=== PATIENT | male | born 1955 | race Caucasian/White ===

== ENCOUNTER 2016-08-15 02:25 | Observation (INO) | payer MEDICARE ==
--- NOTE | 2016-08-15 03:30 | ER Document Report ---
ED General - General Chief Complaint: Chest Pain Stated Complaint: CHEST PAIN Time Seen by Provider: 08/15/16 03:19 Notes: Patient is a 61-year-old male presents with complaint of a pressure-like sensation that radiates up into the left side of his face. He says he feels like there is pressure behind his left eye. Denies blurred vision. He also has a sharp shooting pain that goes into his left caodaism. He also feels palpitations. He says he has no slight discomfort in his chest. No difficulty breathing. No fevers. No history of coronary disease. He does have a history of diabetes and high blood pressure and COPD. He is followed by Dr. Gama. 10 trauma to his head. TRAVEL OUTSIDE OF THE [place] IN LAST 30 DAYS: No - Related Data Allergies/Adverse Reactions: No Known Allergies Allergy (Verified 09/14/13 17:28) Past Medical History - Social History Smoking Status: Former Smoker Frequency of alcohol use: None Drug Abuse: None Family History: CAD, Hypertension - Past Medical History Cardiac Medical History: Reports: Hx Hypertension Pulmonary Medical History: Reports: Hx COPD Endocrine Medical History: Reports: Hx Diabetes Mellitus Type 2 Renal/ Medical History: Denies: Hx Peritoneal Dialysis Traumatic Medical History: Reports: Hx Fractures Past Surgical History: Reports: Hx Orthopedic Surgery - Immunizations Immunizations up to date: Yes Hx Diphtheria, Pertussis, Tetanus Vaccination: Yes Review of Systems - Review of Systems Notes: My Normal Review Basic REVIEW OF SYSTEMS: CONSTITUTIONAL : Denies fever, chills, or sweats. Denies recent illness. EENT: Denies eye, ear, throat, or mouth pain or symptoms. Denies nasal or sinus congestion. CARDIOVASCULAR: Palpitations in chest. RESPIRATORY: Denies cough, cold, or chest congestion. Denies shortness of breath, difficulty breathing, or wheezing. GASTROINTESTINAL: Denies abdominal pain. Denies nausea, vomiting, or diarrhea. Denies constipation. Last BM: MUSCULOSKELETAL: Denies neck or back pain or joint pain or swelling. SKIN: Denies rash or skin lesions. NEUROLOGICAL: Denies altered mental status or loss of consciousness. Has a headache. Denies weakness or paralysis or loss of use of either side. Denies problems with gait or speech. Denies sensory or motor loss. ALL OTHER SYSTEMS REVIEWED AND NEGATIVE. Physical Exam - Vital signs Vitals: Resp BP Pulse Ox 12 185/75 H 94 08/15/16 03:33 08/15/16 03:33 08/15/16 03:33 - Notes Notes: General Appearance: Well nourished, alert, cooperative, no acute distress, moderate obvious discomfort. Vitals: reviewed, See vital signs table. Head: no swelling or tenderness to the head. Some tenderness to palpation over the left temporal area. Eyes: PERRL, EOMI, Conjuctiva clear Mouth: No decreasd moisture Neck: Supple, no neck tenderness, No thyromegaly Lungs: No wheezing, No rales, No rhonci, No accessory muscle use, good air exchange bilaterally. Heart: Normal rate, Regular rythm, No murmur, no rub Abdomen: Normal BS, soft, No rigidity, No abdominal tenderness, No guarding, no rebound, no abdominal masses, no organomegaly Extremities: strength 5/5 in all extremities, good pulses in all extremities, no swelling or tenderness in the extremities, no edema. Skin: warm, dry, appropriate color, no rash Neuro: speech clear, oriented x 3, normal affect, responds appropriately to questions. Cranial nerves II through XII are intact. Distal sensation intact. Patient was all extremities without difficulty. Good strength is equal bilateral with exception of the right hand has a chronic injury causing him not to be able to fully squeeze with the right hand. He says this is unchanged. Course - Vital Signs Vital signs: Temp Pulse Resp BP Pulse Ox 12 130/63 H 96 08/15/16 04:20 08/15/16 04:20 08/15/16 04:20 - Laboratory Result Diagrams: 08/15/16 03:35 08/15/16 03:35 Laboratory results interpreted by me: 08/15/16 08/15/16 03:35 03:35 Plt Count 117 L Glucose 148 H - EKG Interpretation by Me Additional EKG results interpreted by me: 08/15/16 03:31 EKG is reviewed and interpreted by me. EKG shows sinus rhythm with a rate of [address] segment elevation or depression. No ischemic T-wave inversions. RI interval is prolonged. QRS duration is borderline. QTc interval is within normal range. Old EKG for comparison is from August 24, 2014 - Transfer of Care Notes: 08/15/16 06:32 The patient has been nares had recurrent bradycardia. This occurs is when he feels the abnormal sensation in his chest. It is really unclear if the bradycardia is causing the chest pain or vice versa. I suspect the bradycardia may be occurring due to the patient's having increased vagal response from pain. He has pain mostly over the left side of his face. On further history he now informs me that he did have teeth pulled from this area a year ago. Since then he has had some recurrent pain in left side of his face he has been referred to an ENT physician. They told him that he may have nerve damage in his face. This may be the cause of his facial pain. He has no significant swelling to the face itself. No redness. My concern is that the patient has a first-degree AV eligio block and he continues to have repeat episodes of bradycardia with some associated discomfort in his chest. I did speak with Dr. Gama, who agrees to admit the patient. Dictation of this chart was performed using voice recognition software; therefore, there may be some unintended grammatical errors. Discharge - Discharge Clinical Impression: Bradycardia, Facial pain Chest pain Qualifiers: Chest pain type: unspecified Qualified Code(s): R07.9 - Chest pain, unspecified Admitting Provider: [facility] Admitted: Telemetry Referrals: VANESSA CHAMBERS MD [Primary Care Provider] - Follow up as needed
[2016-08-15 03:47] LABS: HEMATOCRIT 46.2 % (37.9-51.0); HEMOGLOBIN 16.2 g/dL (13.5-17.0); HGB HCT DIFFERENCE 2.4; MEAN CORPUSCULAR HEMOGLOBIN 30.4 pg (27.0-33.4); MEAN CORPUSCULAR HGB CONC 35.1 g/dL (32.0-36.0); MEAN CORPUSCULAR VOLUME 87 fl (80-97); RED BLOOD COUNT 5.33 10^6/uL (4.35-5.55); RED CELL DISTRIBUTION WIDTH 12.8 % (11.5-14.0); WHITE BLOOD COUNT 7.3 10^3/uL (4.0-10.5)
[2016-08-15 04:01] LABS: ALANINE AMINOTRANSFERASE 52 U/L (21-72); ALBUMIN 4.2 g/dL (3.5-5.0); ALKALINE PHOSPHATASE 107 U/L (38-126); ANION GAP 14 (5-19); ASPARTATE AMINO TRANSFERASE 30 U/L (17-59); BILIRUBIN,DIRECT 0.4 mg/dL (0.0-0.4); BILIRUBIN,TOTAL 0.5 mg/dL (0.2-1.3); BLOOD UREA NITROGEN 14 mg/dL (7-20); CALCIUM 9.6 mg/dL (8.4-10.2); CARBON DIOXIDE 24 mmol/L (22-30); CHLORIDE 103 mmol/L (98-107); CREATINE KINASE 161 U/L (55-170); CREATININE RESULT 0.81 mg/dL (0.52-1.25); GLUCOSE 148 mg/dL (75-110); POTASSIUM 3.8 mmol/L (3.6-5.0); SODIUM 141.3 mmol/L (137-145); TOTAL PROTEIN 7.5 g/dL (6.3-8.2)
[2016-08-15 04:13] LABS: CREATINE KINASE MB 1.74 ng/mL (<4.55)
[2016-08-15] MEDS ORDERED: DIPHENHYDRAMINE HCL 50 MG/ML VIAL IV ONE (04:13)
[2016-08-15] MEDS ORDERED: METOCLOPRAMIDE HCL INJ/PF 10 MG/2 ML SDV IV ONE (04:13)
[2016-08-15 04:18] LABS: TROPONIN I < 0.012 ng/mL
--- NOTE | 2016-08-15 04:18 | RADIOLOGY REPORT (SQ) ---
EXAM DESCRIPTION: CHEST SINGLE VIEW COMPLETED DATE/TIME: 08/15/2016 4:04 am REASON FOR STUDY: palpitations COMPARISON: 01/11/2015. EXAM PARAMETERS: NUMBER OF VIEWS: One view. TECHNIQUE: Single frontal radiographic view of the chest acquired. RADIATION DOSE: NA LIMITATIONS: None. FINDINGS: LUNGS AND PLEURA: Moderate lung volume. Mild interstitial markings. Stable since 2014. MEDIASTINUM AND HILAR STRUCTURES: No masses. Contour normal. HEART AND VASCULAR STRUCTURES: Heart normal in size. Normal vasculature. BONES: No acute findings. HARDWARE: None in the chest. OTHER: No other significant finding. IMPRESSION: No acute cardiopulmonary findings. TECHNICAL DOCUMENTATION: JOB ID: [id number]
[2016-08-15 04:25] LABS: ERYTHROCYTE SEDIMENTATION RATE 10 mm/hr (0-20)
[2016-08-15] MEDS ORDERED: MORPHINE SULFATE 10 MG/ML INJ IV ONE (04:42)
[2016-08-15] MEDS ORDERED: FENTANYL CITRATE INJ/PF 100 MCG/2 ML AMPUL IV ONE (06:14)
--- NOTE | 2016-08-15 08:41 | EKG REPORT ---
SEVERITY:- ABNORMAL ECG - SINUS RHYTHM FIRST DEGREE AV BLOCK NONSPECIFIC IVCD WITH LAD : Confirmed by: Jaspal Garcia 15-Aug-2016 08:39:43
[2016-08-15] MEDS ORDERED: PREGABALIN 75 MG CAPSULE PO SCH (10:00)
[2016-08-15] MEDS ORDERED: DEXTROSE 50%-WATER SYRINGE 12.5 GM/25 ML DOSE IV PRN (12:17)
[2016-08-15] MEDS ORDERED: DEXTROSE 40% GEL 15 GM TUBE PO PRN (12:17)
[2016-08-15] MEDS ORDERED: GLUCAGON,HUMAN RECOMB 1 MG INJ IM PRN (12:17)
[2016-08-15] MEDS ORDERED: DEXTROSE 40% GEL 15 GM TUBE X 2 PO PRN (12:17)
[2016-08-15] MEDS ORDERED: INSULIN LISPRO 100 UNIT/ML 3 ML VIAL SUBCUT PRN (12:17)
[2016-08-15] MEDS ORDERED: DEXTROSE 50%-WATER SYRINGE 25 GM/50 ML DOSE IV PRN (12:17)
[2016-08-15 12:34] LABS: CREATINE KINASE MB 1.42 ng/mL (<4.55); TROPONIN I 0.013 ng/mL
[2016-08-15] MEDS: GABAPENTIN 300 MG CAPSULE PO SCH ×2 (15:48→21:26)
[2016-08-15] MEDS ORDERED: AMLODIPINE BESYLATE 10 MG TABLET PO ONE (16:00)
[2016-08-15] MEDS ORDERED: VALSARTAN 160 MG TABLET PO ONE (16:00)
[2016-08-15] MEDS ORDERED: POTASSIUM CHLORIDE 10 MEQ TABLET.SA PO ONE (16:00)
[2016-08-15] MEDS ORDERED: HYDROCHLOROTHIAZIDE 25 MG TABLET PO ONE (16:00)
--- NOTE | 2016-08-15 17:59 | PDOC H&P ---
History of Present Illness Admission Date/PCP: 08/15/16 09:36 VANESSA CHAMBERS MD History of Present Illness: CARLOS STALLINGS is a 61 year old male he has a history of diabetes mellitus type 2 , he came to the emergency room last night for evaluation of chest pressure the last few days, the sensation is not provoked by activity and relieved by rest. He also complained of facial pain mostly on the left face, the symptoms is consistent with neuralgia Past Medical History Cardiac Medical History: Reports: Hypertension Pulmonary Medical History: Reports: Chronic Obstructive Pulmonary Disease (COPD) Endocrine Medical History: Reports: Diabetes Mellitus Type 2 Past Surgical History Past Surgical History: Reports: Orthopedic Surgery Social History Smoking Status: Never Smoker Frequency of Alcohol Use: Occasional Hx Recreational Drug Use: No Hx Prescription Drug Abuse: No - Advance Directive Resuscitation Status: Full Code Family History Family History: CAD, Hypertension Parental Family History Reviewed: Yes Children Family History Reviewed: Yes Sibling(s) Family History Reviewed.: Yes Medication/Allergy Home Medications: Amlodipine/Valsartan/Hcthiazid [Nctgy-Rvazb-Xblq 10-320-25 mg] 1 tab PO DAILY Gabapentin [Neurontin] 600 mg PO Q8 08/15/16 Omeprazole 40 mg PO DAILY 08/15/16 Potassium Chloride [Klor-Con 10 Meq Tablet.sa] 10 meq PO DAILY 08/15/16 Ranitidine HCl [Zantac 150 mg Tablet] 150 mg PO BID 08/15/16 Allergies/Adverse Reactions: No Known Allergies Allergy (Verified 09/14/13 17:28) Review of Systems Constitutional: PRESENT: other - Facial pain Ears: ABSENT: hearing changes Cardiovascular: PRESENT: chest pain Respiratory: ABSENT: cough, hemoptysis Gastrointestinal: ABSENT: as per HPI, abdominal pain, bloating, coffee ground emesis, constipation, diarrhea, dysphagia, heartburn, hematemesis, hematochezia , melena, nausea, vomiting, other Genitourinary: ABSENT: dysuria, hematuria Musculoskeletal: ABSENT: joint swelling Integumentary: ABSENT: rash, wounds Neurological: PRESENT: paresthesias, other - facial pain consistent with trigeminal neuralgia Psychiatric: ABSENT: anxiety, depression, homidical ideation, suicidal ideation Endocrine: ABSENT: cold intolerance, heat intolerance, menstrual abnormalities, polydipsia, polyuria Hematologic/Lymphatic: ABSENT: easy bleeding, easy bruising, lymphadenopathy Physical Exam Vital Signs: Temp Pulse Resp BP Pulse Ox 97.6 F 44 L 17 179/65 H 98 08/15/16 16:00 08/15/16 16:00 08/15/16 16:00 08/15/16 16:00 08/15/16 16:00 Intake & Output 08/14/16 08/15/16 08/16/16 06:59 06:59 06:59 Intake Total 180 Output Total 400 Balance -220 General appearance: PRESENT: no acute distress, well-developed, well-nourished Head exam: PRESENT: atraumatic, normocephalic Eye exam: PRESENT: conjunctiva pink, EOMI, PERRLA. ABSENT: scleral icterus Ear exam: PRESENT: normal external ear exam Mouth exam: PRESENT: moist, tongue midline Neck exam: PRESENT: full ROM Respiratory exam: PRESENT: clear to auscultation amando Cardiovascular exam: PRESENT: RRR, +S1, +S2 Pulses: PRESENT: normal dorsalis pedis pul, +2 pedal pulses bilateral Vascular exam: PRESENT: normal capillary refill GI/Abdominal exam: PRESENT: normal bowel sounds, soft Rectal exam: PRESENT: deferred Neurological exam: PRESENT: alert, awake, oriented to person, oriented to place , oriented to time, oriented to situation, CN II-XII grossly intact Psychiatric exam: PRESENT: appropriate affect, normal mood Skin exam: PRESENT: dry, intact, warm Results Laboratory Results: 08/15/16 08/15/16 11:47 11:47 Creatine Kinase 124 CK-MB (CK-2) 1.42 Troponin I 0.013 Impressions: Chest X-Ray 08/15/16 03:26 IMPRESSION: No acute cardiopulmonary findings. Assessment & Plan - Diagnosis (1) Chest pain Qualifiers: Chest pain type: unspecified Qualified Code(s): R07.9 - Chest pain, unspecified Is this a current diagnosis for this admission?: YesPlan: He has multiple risk factor for ischemic heart disease, he presented with chest pressure, cardiac enzymes were drawn, cardiolite stress test will be ordered (2) Trigeminal neuralgia of left side of face Is this a current diagnosis for this admission?: YesPlan: She has trigeminal neuralgia affecting the left side of the face, Lyrica, MRI brain ordered to rule out intracranial lesion because of pain in the back of the eyeball
[2016-08-15] MEDS ORDERED: (PENDING PHARMACY ID) (Ranitidine Hcl [Zantac 150 Mg Tablet] 150 MG) PO SCH (18:00)
[2016-08-15 19:02] LABS: CREATINE KINASE MB 1.46 ng/mL (<4.55)
[2016-08-15 19:08] LABS: TROPONIN I < 0.012 ng/mL
--- NOTE | 2016-08-15 20:10 | RADIOLOGY REPORT (SQ) ---
EXAM DESCRIPTION: MRI HEAD WITHOUT COMPLETED DATE/TIME: 08/15/2016 7:56 pm REASON FOR STUDY: headache R07.9 CHEST PAIN, UNSPECIFIED COMPARISON: 08/24/2014. TECHNIQUE: Multiplanar imaging includes non-contrasted T1, T2, FLAIR, and diffusion with ADC map seq uences. Images stored on PACS. LIMITATIONS: None. FINDINGS: ANATOMY: No anomalies. Normal vascular flow voids. Pituitary fossa normal. CSF SPACES: Normal in size and contour. No hemorrhage. CEREBRUM: Sulci and gyri normal in size and contour. Normal white matter signal on FLAIR imaging. No evidence of hemorrhage, mass, or extraaxial fluid collection. POSTERIOR FOSSA: No signal alteration. No hemorrhage. No edema, masses or mass effect. Internal lila tory canals, cerebello-pontine angles, mastoids normal. DIFFUSION IMAGING: Negative for acute or sub-acute infarction. ORBITS: No masses. Globes normal. PARANASAL SINUSES: Mucous membrane thickening in the frontal and ethmoid sinuses. OTHER: No other significant finding. IMPRESSION: NORMAL MRI OF THE BRAIN WITHOUT INTRAVENOUS GADOLINIUM CONTRAST. SINUS DISEASE. TECHNICAL DOCUMENTATION: JOB ID: [id number] All Rights Reserved
[2016-08-15] MEDS: FAMOTIDINE 20 MG TABLET PO SCH (21:25)
[2016-08-16 02:50] LABS: CREATINE KINASE MB 1.17 ng/mL (<4.55)
[2016-08-16 02:54] LABS: TROPONIN I < 0.012 ng/mL
[2016-08-16] MEDS: GABAPENTIN 300 MG CAPSULE PO SCH ×2 (05:45→13:55)
[2016-08-16] MEDS ORDERED: LANSOPRAZOLE 30 MG TAB.RAP.DR PO SCH (06:00)
--- NOTE | 2016-08-16 07:51 | EKG REPORT ---
SEVERITY:- ABNORMAL ECG - SINUS BRADYCARDIA FIRST DEGREE AV BLOCK NONSPECIFIC INTRAVENTRICULAR CONDUCTION DELAY : Confirmed by: Jaspal Garcia 16-Aug-2016 07:50:50
[2016-08-16] MEDS: FAMOTIDINE 20 MG TABLET PO SCH (09:19)
[2016-08-16] MEDS ORDERED: POTASSIUM CHLORIDE 10 MEQ TABLET.SA PO SCH (10:00)
[2016-08-16] MEDS ORDERED: (PENDING PHARMACY ID) (Amlodipine/Valsartan/Hcthiazid [Amlod-Valsa-Hctz 10-320-25 Mg] 1 TA PO SCH (10:00)
[2016-08-16] MEDS ORDERED: VALSARTAN 160 MG TABLET PO SCH (10:00)
[2016-08-16] MEDS ORDERED: HYDROCHLOROTHIAZIDE 25 MG TABLET PO SCH (10:00)
[2016-08-16] MEDS ORDERED: AMLODIPINE BESYLATE 10 MG TABLET PO SCH (10:00)
[2016-08-16] MEDS ORDERED: REGADENOSON INJ 0.4 MG/5 ML DISP.SYRIN IV ONE (10:40)
--- NOTE | 2016-08-16 15:24 | XCELERA REPORT ---
[address] [address] Transthoracic Echocardiogram Report Name: CARLOS STALLINGS Age: 61 yrs Gender: Male : 1955 Patient Status: Inpatient Patient Location: [id number] Study Date: 08/16/2016 01:58 PM Height: 66 in Weight: 186 lb BSA: 1.9 m2 Procedure: A two-dimensional transthoracic echocardiogram with color flow and Doppler was performed. The study was technically difficult with many images being suboptimal in quality. Study Quality: Technically suboptimal. Reason For Study: Chest Pain History: Chest pain. Ordering Physician: VANESSA CHAMBERS Performed By: Jigna Marshall Interpretation Summary The left ventricle is normal in size. There is normal left ventricular wall thickness. LV EF is 60% Left ventricular systolic function is normal. Doppler measurements suggest normal left ventricular diastolic function The left ventricular wall motion is normal. There is no thrombus. The right ventricle is not well visualized secondary to technical limitations Right atrium not well visualized secondary to technical limitations The left atrial size is normal. There is no evidence of mitral valve prolapse. There is no mitral valve stenosis. There is no mitral regurgitation noted. There is no aortic valve stenosis There is no LVOT obstruction. No aortic regurgitation is present. There is no tricuspid stenosis. There is a trace amount of tricuspid regurgitation Right ventricular systolic pressure is normal. RVSP is 32 to 26 mm of Hg , with RA mean of 5 to 10. There is no pericardial effusion. MMode/2D Measurements \T\ Calculations RVDd: 3.0 cm LVIDd: 4.5 cm FS: 33.2 % Ao root diam: 3.5 cm IVSd: 1.0 cm LVIDs: 3.0 cm EDV(Teich): 91.2 ml LVPWd: 0.99 cmESV(Teich): 34.7 ml Ao root area: 9.5 cm2 EF(Teich): 61.9 % LA dimension: 3.9 cm LVOT diam: 2.3 cm LVOT area: 4.1 cm2 Doppler Measurements \T\ Calculations MV E max amando: MV P1/2t max amando: Ao V2 max: LV V1 max P.7 cm/sec 75.3 cm/sec 144.8 cm/sec 5.2 mmHg MV A max amando: MV P1/2t: 67.6 msec Ao max PG: LV V1 max: 66.9 cm/sec MVA(P1/2t): 3.3 cm2 8.4 mmHg 114.5 cm/sec MV E/A: 1.1 MV dec slope: SALEEM(V,D): 3.3 cm2 326.2 cm/sec2 PA V2 max: TR max amando: 81.1 cm/sec 197.8 cm/sec PA max PG: TR max P.6 mmHg 2.6 mmHg Left Ventricle The left ventricle is normal in size. There is normal left ventricular wall thickness. LV EF is 60%. Left ventricular systolic function is normal. Doppler measurements suggest normal left ventricular diastolic function. The left ventricular wall motion is normal. There is no thrombus. Right Ventricle The right ventricle is not well visualized secondary to technical limitations. Atria Right atrium not well visualized secondary to technical limitations. The left atrial size is normal. Mitral Valve There is no evidence of mitral valve prolapse. There is no vegetation seen on the mitral valve. There is no mitral valve stenosis. There is no mitral regurgitation noted. Aortic Valve There is no aortic valvular vegetation. There is no aortic valve stenosis. There is no LVOT obstruction. No aortic regurgitation is present. Tricuspid Valve There is no tricuspid stenosis. There is a trace amount of tricuspid regurgitation. Right ventricular systolic pressure is normal. RVSP is 32 to 26 mm of Hg , with RA mean of 5 to 10. Pulmonic Valve There is no pulmonic valvular stenosis. There is no pulmonic valvular regurgitation. Great Vessels The aortic root is normal size. Effusions There is no pericardial effusion. : VANESSA CHAMBERS > Ila Martínez
[2016-08-16] MEDS ORDERED: ACETAMINOPHEN 325 MG TABLET PO PRN (16:45)
--- NOTE | 2016-08-16 17:45 | PDOC DISCHARGE SUMMARY ---
General - Admit/Disc Date/PCP Admission Date/Primary Care Provider: 08/15/16 09:36 VANESSA CHAMBERS MD Discharge Date: 08/16/16 - Discharge Diagnosis (1) Chest pain Is this a current diagnosis for this admission?: Yes (2) Trigeminal neuralgia of left side of face Is this a current diagnosis for this admission?: Yes (3) Diabetic polyneuropathy associated with type 2 diabetes mellitus Is this a current diagnosis for this admission?: Yes - Additional Information Resuscitation Status: Full Code Discharge Diet: Diabetic Discharge Activity: Activity As Tolerated Home Medications: Amlodipine/Valsartan/Hcthiazid [Cakqf-Bjxjq-Fofw 10-320-25 mg] 1 tab PO DAILY Omeprazole 40 mg PO DAILY 08/15/16 Potassium Chloride [Klor-Con 10 Meq Tablet.sa] 10 meq PO DAILY 08/15/16 Ranitidine HCl [Zantac 150 mg Tablet] 150 mg PO BID 08/15/16 Gabapentin [Neurontin] 900 mg PO Q8 #90 08/16/16 History of Present Illness History of Present Illness: CARLOS STALLINGS is a 61 year old male he has a history of diabetes mellitus type 2 , he came to the emergency room last night for evaluation of chest pressure the last few days, the sensation is not provoked by activity and relieved by rest. He also complained of facial pain mostly on the left face, the symptoms is consistent with neuralgia Hospital Course Hospital Course: Patient was admitted for evaluation of chest pain, cardiac enzymes were negative for acute [place] he also have left sided facial pain consistent with trigeminal neuralgia he underwent Cardiolite. Lexiscan stress test it was negative for reversible ischemia, 2D echo was done it was normal study, MRI brain was done and it was normal study. The dose of gabapentin was increased from 600 to900 mg 3 times a day Physical Exam Vital Signs: Temp Pulse Resp BP Pulse Ox 97.9 F 51 L 17 127/61 H 94 08/16/16 15:21 08/16/16 15:21 08/16/16 15:21 08/16/16 15:21 08/16/16 15:21 Intake & Output 08/15/16 08/16/16 08/17/16 06:59 06:59 06:59 Intake Total 190 840 Output Total 1300 Balance -1110 840 General appearance: PRESENT: no acute distress, well-developed, well-nourished Head exam: PRESENT: atraumatic, normocephalic Eye exam: PRESENT: conjunctiva pink, EOMI, PERRLA Ear exam: PRESENT: normal external ear exam Mouth exam: PRESENT: moist, tongue midline Neck exam: PRESENT: full ROM. ABSENT: carotid bruit, JVD, lymphadenopathy, thyromegaly Cardiovascular exam: PRESENT: RRR, +S1, +S2 Vascular exam: PRESENT: normal capillary refill GI/Abdominal exam: PRESENT: soft Rectal exam: PRESENT: deferred Neurological exam: PRESENT: alert, awake, oriented to person, oriented to place , oriented to time, oriented to situation, CN II-XII grossly intact Psychiatric exam: PRESENT: appropriate affect, normal mood Skin exam: PRESENT: dry, intact, warm Results Laboratory Results: 08/15/16 08/15/16 08/15/16 11:47 11:47 18:06 Creatine Kinase 124 121 CK-MB (CK-2) 1.42 Troponin I 0.013 08/15/16 08/16/16 08/16/16 18:06 02:14 02:14 Creatine Kinase 114 CK-MB (CK-2) 1.46 1.17 Troponin I < 0.012 < 0.012 Impressions: Head MRI 08/15/16 00:00 IMPRESSION: NORMAL MRI OF THE BRAIN WITHOUT INTRAVENOUS GADOLINIUM CONTRAST. SINUS DISEASE. Chest X-Ray 08/15/16 03:26 IMPRESSION: No acute cardiopulmonary findings.
[2016-08-16 18:23] VITALS: BP 179/65
--- NOTE | 2016-08-16 22:36 | DRAGON STRESS TEST REPORT ---
Intravenous LexiScan Cardiolite stress test using single photon emmision computerized tomographic. Date of procedure: 08/16/2016 Ordering Provider: Patient Status.In Patient Indication: Chest Pain. Coronary risk factors:Age,Diabetes Mellitus, Hypertension, and family history of CAD. Resting EKG:Sinus Bradycardia.Normal EKG. Stress EKG: No changes of ischemia. The patient had transient chest pressure without EKG changes.No arrhythmias seen. Reason for termination: Protocol. Conclusions: Normal EKG and hemodynamic response to IV LexiScan. Nuclear data: At rest the patient was given 12.94 millicuries of technetium 99 sestamibi injected intravenously. As per protocol rest non gated SPECT images were obtained. Subsequently the patient was given intravenous LexiScan at a dose of 0.4 mg in 5 mL intravenously, followed by flush with normal saline. Subsequently the stress dose of 36.9 millicuries of technetium 99 sestamibi was injected intravenously. As per protocol stress gated images were obtained. Nuclear interpretation: Review of images showed that there was bowel contamination artifact of the Inferior wall.There ia perfusion defect in a small area of the basal inferior wall,which is more prononced in the rest images compared to the stress images.This area has normal motion , contraction and thickening by gated study.Hence this is and soft tissue attenuation artifact.The rest of the segments of the myocardium had normal perfusion at rest, and normal perfusion post stress with IV LexiScan. All segments of the myocardium had normal motion, contraction, and thickening by gated study. T. I D. ratio was normal at 1.14. Computer read rest, and stress left ventricular ejection fraction were 56 %, and 54% respectively. Visually both the stress and rest ejection fractions were normal, and greater than 55%. CONCLUSION: 1. There is no scintigraphic evidence of LexiScan induced myocardial ischemia. 2. There is no scintigraphic evidence of myocardial infarction/scar. 3. Soft tissue atenuation artifact of a small area of the basal inferior wall. Recommendations: Aggressive risk factor modification, and treating the underlying co- morbidities MTDD
== END 2016-08-16 18:50 | disposition home or self-care (01) ==
LOC: ER 02:25 → EH 06:42 → UNDOADMOB 06:42 → EH 08:21 → 4N 08:21
PROVIDERS: ADMIT Internal Medicine; ATTEND Internal Medicine
DX: R07.89 Other chest pain (principal); G50.0 Trigeminal neuralgia; E11.42 Type 2 diabetes mellitus with diabetic polyneuropathy; I44.0 Atrioventricular block, first degree; I10 Essential (primary) hypertension; R00.1 Bradycardia, unspecified; Z79.899 Other long term (current) drug therapy; Z82.49 Family history of ischemic heart disease and other diseases of the circulatory system; Z98.818 Other dental procedure status; Z87.891 Personal history of nicotine dependence; Z87.09 Personal history of other diseases of the respiratory system
CPT/HCPCS: 93005 ×2; 99285; 96374; 96375; 36415 ×2; 82553 ×2; 82962 ×2; 82550 ×2; 85027; 85652; 80053; 84484 ×2; 93306; 93017; 70551; 71010; 78452; 93010 ×2; G0378 ×2; A9500; J2785; A9270 ×12; J1200; J3010; J2765; J2270; J3490; Q9969

== ENCOUNTER 2018-06-23 18:25 | Inpatient (IN) | payer MEDICARE ==
[2018-06-23] MEDS ORDERED: ASPIRIN 81 MG TABLET, CHEWABLE PO ONE ×2 (18:52→22:15)
--- NOTE | 2018-06-23 18:56 | ER Document Report ---
ED Medical Screen (RME) - General Chief Complaint: Chest Pain Stated Complaint: CHEST PAIN Time Seen by Provider: 06/23/18 18:47 Primary Care Provider: VANESSA CHAMBERS MD [Primary Care Provider] - Follow up as needed Mode of Arrival: Ambulatory Information source: Patient TRAVEL OUTSIDE OF THE [place] IN LAST 30 DAYS: No - HPI Patient complains to provider of: CP Notes: 06/23/18 18:53 Patient with complaints of chest pain and shortness of breath for the last 2 weeks. Patient says the pain is worse when he lays down and rests, it is not exertional. No recent long trips or surgeries, leg pain or leg swelling, cancer, history of DVT or PE. Exam Nontoxic, no distress. Lungs clear and equal throughout. Heart sounds normal. Plan CBC, CMP, CPK, CK-MB, troponin, EKG, chest x-ray An initial examination was made on the patient as part of the triage process, and it was determined a more comprehensive evaluation was necessary. Initial labs were ordered and patient was transferred to another provider in the ED who assumed care and finished evaluation and plan. - Related Data Allergies/Adverse Reactions: No Known Allergies Allergy (Verified 06/23/18 18:27) Past Medical History - Past Medical History Cardiac Medical History: Reports: Hx Hypertension Pulmonary Medical History: Reports: Hx COPD Endocrine Medical History: Reports: Hx Diabetes Mellitus Type 2 Renal/ Medical History: Denies: Hx Peritoneal Dialysis Traumatic Medical History: Reports: Hx Fractures Past Surgical History: Reports: Hx Orthopedic Surgery - Immunizations Immunizations up to date: Yes Hx Diphtheria, Pertussis, Tetanus Vaccination: Yes Physical Exam - Vital signs Vitals: Temp Pulse Resp BP Pulse Ox 98.3 F 60 22 H 179/82 H 97 06/23/18 18:31 06/23/18 18:31 06/23/18 18:31 06/23/18 18:31 06/23/18 18:31 Course - Vital Signs Vital signs: Temp Pulse Resp BP Pulse Ox 98.3 F 60 22 H 179/82 H 97 06/23/18 18:31 06/23/18 18:31 06/23/18 18:31 06/23/18 18:31 06/23/18 18:31 Doctor's Discharge - Discharge Referrals: VANESSA CHAMBERS MD [Primary Care Provider] - Follow up as needed
--- NOTE | 2018-06-23 19:12 | RADIOLOGY REPORT (SQ) ---
EXAM DESCRIPTION: CHEST SINGLE VIEW COMPLETED DATE/TIME: 06/23/2018 7:02 pm REASON FOR STUDY: CP COMPARISON: 01/11/2015 TECHNIQUE: Single frontal radiographic view of the chest acquired. NUMBER OF VIEWS: One view. LIMITATIONS: None. FINDINGS: LUNGS AND PLEURA: No pneumothorax. No consolidation or pleural effusion. Similar chronic interstitial changes- basilar scarring. MEDIASTINUM AND HILAR STRUCTURES: Stable. HEART AND VASCULAR STRUCTURES: Stable. BONES: No acute findings. HARDWARE: None in the chest. OTHER: No other significant finding. IMPRESSION: NO ACUTE FINDINGS. TECHNICAL DOCUMENTATION: JOB ID: [id number]- All Rights Reserved Reading location - IP/workstation name: [email or web address]
[2018-06-23 19:31] LABS: ABSOLUTE BASOPHILS # (AUTO) 0.1 10^3/uL (0.0-0.2); ABSOLUTE EOSINOPHILS # (AUTO) 0.7 10^3/uL (0.0-0.6); ABSOLUTE LYMPHOCYTES (AUTO) 2.7 10^3/uL (0.5-4.7); ABSOLUTE MONOCYTES (AUTO) 0.5 10^3/uL (0.1-1.4); ABSOLUTE NEUT (AUTO) 2.7 10^3/uL (1.7-8.2); BASOPHILS % (AUTO) 0.9 % (0-2); EOSINOPHILS % (AUTO) 10.2 % (0-6); HEMATOCRIT 45.9 % (37.9-51.0); HEMOGLOBIN 16.2 g/dL (13.5-17.0); LYMPHOCYTES % (AUTO) 40.6 % (13-45); MEAN CORPUSCULAR HEMOGLOBIN 30.3 pg (27.0-33.4); MEAN CORPUSCULAR HGB CONC 35.3 g/dL (32.0-36.0); MEAN CORPUSCULAR VOLUME 86 fl (80-97); MONOCYTES % (AUTO) 8.1 % (3-13); PLATELET COUNT 124 10^3/uL (150-450); RED BLOOD COUNT 5.34 10^6/uL (4.35-5.55); RED CELL DISTRIBUTION WIDTH 13.1 % (11.5-14.0); SEGMENTED NEUTROPHILS % (AUTO) 40.2 % (42-78); TOTAL CELLS COUNTED % (AUTO) 100 %; WHITE BLOOD COUNT 6.7 10^3/uL (4.0-10.5)
[2018-06-23 19:56] LABS: ALANINE AMINOTRANSFERASE 44 U/L (21-72); ALBUMIN 4.3 g/dL (3.5-5.0); ALKALINE PHOSPHATASE 94 U/L (38-126); ANION GAP 12 (5-19); ASPARTATE AMINO TRANSFERASE 36 U/L (17-59); BILIRUBIN,DIRECT 0.3 mg/dL (0.0-0.4); BILIRUBIN,TOTAL 0.6 mg/dL (0.2-1.3); BLOOD UREA NITROGEN 16 mg/dL (7-20); CALCIUM 9.7 mg/dL (8.4-10.2); CARBON DIOXIDE 26 mmol/L (22-30); CHLORIDE 104 mmol/L (98-107); CREATINE KINASE 181 U/L (55-170); GLUCOSE 147 mg/dL (75-110); POTASSIUM 3.9 mmol/L (3.6-5.0); SODIUM 142.4 mmol/L (137-145); TOTAL PROTEIN 7.6 g/dL (6.3-8.2)
[2018-06-23 20:07] LABS: CREATINE KINASE MB 1.41 ng/mL (<4.55)
[2018-06-23 20:10] LABS: TROPONIN I < 0.012 ng/mL
--- NOTE | 2018-06-23 20:45 | ER Document Report ---
ED General - General Chief Complaint: Chest Pain Stated Complaint: CHEST PAIN Time Seen by Provider: 06/23/18 18:47 Mode of Arrival: Ambulatory Information source: Patient Notes: This is a 63-year-old man with a history of sinus bradycardia, COPD, hypertension, diabetes, GERD. The patient presents to the emergency room for the last few weeks having intermittent chest pain and palpitations. Patient also notes over the last week is been very fatigued. TRAVEL OUTSIDE OF THE [place] IN LAST 30 DAYS: No - HPI Onset: Last week Onset/Duration: Gradual Quality of pain: Dull, Sharp Severity: Moderate Pain Level: 2 Associated symptoms: Other. denies: Fever - Applications, Shortness of breath Exacerbated by: Movement Relieved by: Denies Similar symptoms previously: Yes Recently seen / treated by doctor: No - Related Data Allergies/Adverse Reactions: No Known Allergies Allergy (Verified 06/23/18 18:27) Past Medical History - General Information source: Patient - Social History Smoking Status: Unknown if Ever Smoked Cigarette use (# per day): No Chew tobacco use (# tins/day): No Frequency of alcohol use: Occasional Drug Abuse: None Lives with: Alone Family History: CAD, Hypertension Patient has suicidal ideation: No Patient has homicidal ideation: No - Past Medical History Cardiac Medical History: Reports: Hx Hypertension Pulmonary Medical History: Reports: Hx COPD Endocrine Medical History: Reports: Hx Diabetes Mellitus Type 2 Renal/ Medical History: Denies: Hx Peritoneal Dialysis Traumatic Medical History: Reports: Hx Fractures Past Surgical History: Reports: Hx Orthopedic Surgery - Immunizations Immunizations up to date: Yes Hx Diphtheria, Pertussis, Tetanus Vaccination: Yes Review of Systems - Review of Systems Constitutional: denies: Chills, Fever EENT: No symptoms reported Cardiovascular: See HPI Respiratory: See HPI Gastrointestinal: No symptoms reported Genitourinary: No symptoms reported Male Genitourinary: No symptoms reported Musculoskeletal: See HPI Skin: No symptoms reported Hematologic/Lymphatic: No symptoms reported Neurological/Psychological: See HPI Physical Exam - Vital signs Vitals: Temp Pulse Resp BP Pulse Ox 98.3 F 60 22 H 179/82 H 97 06/23/18 18:31 06/23/18 18:31 06/23/18 18:31 06/23/18 18:31 06/23/18 18:31 Notes: Physical exam: GENERAL: She is alert and oriented x3, no acute distress HEAD: Atraumatic, normocephalic. EYES: Pupils equal round and reactive to light, extraocular movements intact, sclera anicteric, conjunctiva are normal. ENT: TMs normal, nares patent, oropharynx clear without exudates. Moist mucous membranes. NECK: Normal range of motion, supple without obvious mass or JVD. LUNGS: Breath sounds clear to auscultation bilaterally and equal. No wheezes rales or rhonchi. HEART: Regular rate and rhythm without murmurs, rubs or gallops. ABDOMEN: Soft, normoactive bowel sounds. No tenderness to palpation. No guarding, no rebound. No masses appreciated. EXTREMITIES: Normal range of motion, no pitting or edema. No clubbing or cyanosis. NEUROLOGICAL: Cranial nerves II through XII grossly intact. Normal speech, moving all extremities. PSYCH: Normal mood, normal affect. SKIN: Warm, Dry, normal turgor, no rashes or lesions noted. Course - Re-evaluation Re-evalutation: 06/23/18 22:34 I was just called to see the patient because he developed chest pain. He describes it as palpitations (fluttering in his chest). On the heart rate monitor, his heart rate is 50 and regular. His lungs remain clear and when I touch his chest wall he jumps. He states that he gets tender sometimes because he coughs a lot given his COPD. I said when you get the pain is it always that tender on his chest wall and he says it frequently is. Repeat EKG at this time shows a sinus bradycardia with a rate of 50 and there is no acute ST-T wave changes. I discussed these recent events with Dr. Mcdowell and reviewed the CT a which shows no pulmonary emboli. - Vital Signs Vital signs: Temp Pulse Resp BP Pulse Ox 98.3 F 60 22 H 179/82 H 97 06/23/18 18:31 06/23/18 18:31 06/23/18 18:31 06/23/18 18:31 06/23/18 18:31 - Laboratory Result Diagrams: 06/23/18 19:10 06/23/18 19:10 Laboratory results interpreted by me: 06/23/18 06/23/18 19:10 19:10 Plt Count 124 L Seg Neutrophils % 40.2 L Eosinophils % 10.2 H Absolute Eosinophils 0.7 H Glucose 147 H Creatine Kinase 181 H - Diagnostic Test Radiology reviewed: Image reviewed, Reports reviewed - TA shows no pulmonary emboli - EKG Interpretation by Me Rate: Bradycardia - EKG shows sinus bradycardia with a ventricular rate of 50, no acute ST-T wave changes Discharge - Discharge Clinical Impression: Chest pain, Palpitations Condition: Stable Disposition: ADMITTED OBSERVATION Admitting Provider: Eulalia Mcdowell is covering Unit Admitted: Telemetry
[2018-06-23 21:00] LABS: FREE T3 4.28 pg/mL (2.77-5.27); FREE T4 (FREE THYROXINE) 1.11 ng/dL (0.78-2.19)
[2018-06-23 21:13] LABS: THYROID STIMULATING HORMONE 3.61 uIU/mL (0.47-4.68)
[2018-06-23] MEDS ORDERED: ACETAMINOPHEN 325 MG TABLET PO PRN (21:31)
[2018-06-23] MEDS ORDERED: IPRATROPIUM/ALBUTEROL 0.5-2.5 MG/3 ML AMPUL NEB PRN (21:31)
[2018-06-23] MEDS ORDERED: DEXTROSE 40% GEL 15 GM TUBE PO PRN ×2 (21:34)
[2018-06-23] MEDS ORDERED: DEXTROSE 50%-WATER 25 GM/50 ML DISP.SYRIN IV PRN ×2 (21:34)
[2018-06-23] MEDS ORDERED: GLUCAGON,HUMAN RECOMB 1 MG INJ IM PRN (21:34)
--- NOTE | 2018-06-23 21:47 | PDOC H&P ---
History of Present Illness Admission Date/PCP: 06/23/18 20:54 VANESSA CHAMBERS MD Patient complains of: Chest pain History of Present Illness: CARLOS STALLINGS is a 63 year old male This is a 63-year-old male patient of Dr. Chambers with a history of the hypertension's type 2 diabetes history of the trigeminal neuralgia came to the emergency department for the last couple of days complaining before left-sided chest pain radiating to the neck and patient is feeling tired and fatigue\ According to the patient when he saw Dr. Chambers couple of weeks back and before he tried to send to the cardiology but patients never went Patient was admitted last year for the chest pain underwent for a Cardiolite stress test was all okay Patient also have a neck pain and symptoms headache have a history of the trigeminal neuralgia Patient is currently taking the gabapentin Patient also feeling the tingling and numbness of the lower extremity and have a history of the neuropathy Patient's blood sugar is also running 200-300 range used to take the Janumet. It 1 month back and according to the patient has blood sugar was running low and he has to eat to bring it up so he stopped the medications and he is not taking anything Patient is denied any heart surgery Denied any strokes In the emergency department patient EKG and cardiac enzyme is all stable Patient is currently denied any chest pain except patient was complaining of her neck pain back pain Patient no history of the chronic back problems used to take the oxycodone 4 times a day but stopped 1 year back History of the COPD denied denied any smoking Past Medical History Cardiac Medical History: Reports: Hypertension Pulmonary Medical History: Reports: Chronic Obstructive Pulmonary Disease (COPD) Endocrine Medical History: Reports: Diabetes Mellitus Type 2 GI Medical History: Reports: Gastroesophageal Reflux Disease Musculoskeltal Medical History: Reports: Arthritis Musculoskeletal History Note: Chronic back pain Past Surgical History Past Surgical History: Reports: Orthopedic Surgery Social History Information Source: Patient Smoking Status: Never Smoker Frequency of Alcohol Use: Occasional Hx Recreational Drug Use: No Hx Prescription Drug Abuse: No Family History Family History: CAD, Hypertension Parental Family History Reviewed: Yes Children Family History Reviewed: Yes Sibling(s) Family History Reviewed.: Yes Medication/Allergy Home Medications: Amlodipine/Valsartan/Hcthiazid [Nuaae-Qkwbi-Udxy 10-320-25 mg] 1 tab PO DAILY 08/15/16 Omeprazole 40 mg PO DAILY 08/15/16 Potassium Chloride [Klor-Con 10 Meq Capsule ER] 10 meq PO DAILY 08/15/16 Ranitidine HCl [Zantac 150 mg Tablet] 150 mg PO BID 08/15/16 Gabapentin [Neurontin] 600 mg PO Q8 06/23/18 Torsemide [Demadex 20 mg Tablet] 20 mg PO DAILY 06/23/18 Allergies/Adverse Reactions: No Known Allergies Allergy (Verified 06/23/18 18:27) Review of Systems Constitutional: PRESENT: fatigue, weakness. ABSENT: chills, fever(s), headache(s), weight gain, weight loss Eyes: ABSENT: visual disturbances Ears: ABSENT: hearing changes Cardiovascular: PRESENT: chest pain. ABSENT: dyspnea on exertion, edema, orthropnea, palpitations Respiratory: ABSENT: cough, hemoptysis Gastrointestinal: ABSENT: abdominal pain, constipation, diarrhea, hematemesis, hematochezia, nausea, vomiting Genitourinary: ABSENT: dysuria, hematuria Musculoskeletal: PRESENT: back pain. ABSENT: joint swelling Integumentary: ABSENT: rash, wounds Neurological: ABSENT: abnormal gait, abnormal speech, confusion, dizziness, focal weakness, syncope Psychiatric: ABSENT: anxiety, depression, homidical ideation, suicidal ideation Endocrine: ABSENT: cold intolerance, heat intolerance, menstrual abnormalities, polydipsia, polyuria Hematologic/Lymphatic: ABSENT: easy bleeding, easy bruising, lymphadenopathy Physical Exam Vital Signs: Temp Pulse Resp BP Pulse Ox 98.3 F 60 22 H 179/82 H 97 06/23/18 18:31 06/23/18 18:31 06/23/18 18:31 06/23/18 18:31 06/23/18 18:31 Intake & Output 06/22/18 06/23/18 06/24/18 06:59 06:59 06:59 Weight 86.3 kg General appearance: PRESENT: no acute distress, well-developed, well-nourished Head exam: PRESENT: atraumatic, normocephalic Eye exam: PRESENT: conjunctiva pink, EOMI, PERRLA. ABSENT: scleral icterus Ear exam: PRESENT: normal external ear exam Mouth exam: PRESENT: moist, tongue midline Neck exam: PRESENT: full ROM. ABSENT: carotid bruit, JVD, lymphadenopathy, thyromegaly Respiratory exam: PRESENT: clear to auscultation amando Cardiovascular exam: PRESENT: RRR. ABSENT: diastolic murmur, rubs, systolic murmur Vascular exam: PRESENT: normal capillary refill GI/Abdominal exam: PRESENT: normal bowel sounds, soft. ABSENT: distended, guarding, mass, organolmegaly, rebound, tenderness Rectal exam: PRESENT: deferred Extremities exam: ABSENT: pedal edema Neurological exam: PRESENT: alert, awake, oriented to person, oriented to place, oriented to time, oriented to situation, reflexes normal, CN II-XII grossly intact, normal gait. ABSENT: motor sensory deficit Psychiatric exam: PRESENT: appropriate affect, normal mood. ABSENT: homicidal ideation, suicidal ideation Skin exam: PRESENT: dry, intact, warm. ABSENT: cyanosis, rash Results Laboratory Results: 06/23/18 19:10 06/23/18 19:10 06/23/18 06/23/18 06/23/18 19:10 19:10 19:10 WBC 6.7 RBC 5.34 Hgb 16.2 Hct 45.9 MCV 86 MCH 30.3 MCHC 35.3 RDW 13.1 Plt Count 124 L Seg Neutrophils % 40.2 L Lymphocytes % 40.6 Monocytes % 8.1 Eosinophils % 10.2 H Basophils % 0.9 Absolute Neutrophils 2.7 Absolute Lymphocytes 2.7 Absolute Monocytes 0.5 Absolute Eosinophils 0.7 H Absolute Basophils 0.1 Sodium 142.4 Potassium 3.9 Chloride 104 Carbon Dioxide 26 Anion Gap 12 BUN 16 Creatinine 0.83 Est GFR ( Amer) > 60 Est GFR (Non-Af Amer) > 60 Glucose 147 H Calcium 9.7 Total Bilirubin 0.6 AST 36 ALT 44 Alkaline Phosphatase 94 Total Protein 7.6 Albumin 4.3 TSH 3.61 Free T4 1.11 Free T3 pg/mL 4.28 06/23/18 06/23/18 19:10 19:10 Creatine Kinase 181 H CK-MB (CK-2) 1.41 Troponin I < 0.012 Impressions: Chest X-Ray 06/23/18 18:52 IMPRESSION: NO ACUTE FINDINGS. Assessment & Plan - Diagnosis (1) Chest pain Qualifiers: Chest pain type: unspecified Qualified Code(s): R07.9 - Chest pain, unspecified Is this a current diagnosis for this admission?: Yes Plan: Admit the patient Consulted cardiology For the CT of the chest (2) Bradycardia Is this a current diagnosis for this admission?: Yes Plan: History of the bradycardia supposed to see the cardiology but did not see will consult the cardiology check the TSH and free T4 (3) Diabetic polyneuropathy associated with type 2 diabetes mellitus Is this a current diagnosis for this admission?: Yes Plan: Continue the gabapentin (4) Trigeminal neuralgia of left side of face Is this a current diagnosis for this admission?: Yes Plan: We will get the MRI of the head (5) COPD (chronic obstructive pulmonary disease) Qualifiers: Emphysema type: unspecified Is this a current diagnosis for this admission?: Yes Plan: Mr. HONEYCUTT nebulizer (6) HTN (hypertension) Qualifiers: Hypertension type: essential hypertension Qualified Code(s): I10 - Essential (primary) hypertension Is this a current diagnosis for this admission?: Yes (7) Osteoarthritis Qualifiers: Osteoarthritis location: multiple joints Is this a current diagnosis for this admission?: Yes - Time Time Spent: 30 to 50 Minutes Medications reviewed and adjusted accordingly: Yes Anticipated discharge: Home Within: Other - Inpatient Certification Based on my medical assessment, after consideration of the patient's comorbidities, presenting symptoms, or acuity I expect that the services needed warrant INPATIENT care.: Yes I certify that my determination is in accordance with my understanding of Medicare's requirements for reasonable and necessary INPATIENT services [42 CFR 412.3e].: Yes Medical Necessity: Significant Comorbidiites Make Outpatient Treatment Too Risky, Need Close Monitoring Due to Risk of Patient Decompensation 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
[2018-06-23] MEDS: INSULIN LISPRO 100 UNIT/ML 3 ML VIAL SUBCUT SCH (22:00)
[2018-06-23] MEDS ORDERED: ONDANSETRON HCL INJ/PF 4 MG/2 ML SDV IV ONE (22:19)
[2018-06-23] MEDS ORDERED: MORPHINE SULFATE 10 MG/ML INJ IV ONE (22:19)
--- NOTE | 2018-06-23 22:29 | RADIOLOGY REPORT (SQ) ---
EXAM DESCRIPTION: CT CHEST ANGIOGRAPHY WITHOUT THEN WITH IV CONTRAST COMPLETED DATE/TME: 06/23/2018 00:00 CLINICAL HISTORY: 63 years, Male, chest pain COMPARISON: None. TECHNIQUE: 627 Images stored on PACS. All CT scanners at this facility use dose modulation, iterative reconstruction, and/or weight based dosing when appropriate to reduce radiation dose to as low as reasonably achievable (ALARA). Axial images obtained with coronal and sagittal MIPS reconstructions. [facility]: Dose Right [facility]: Care[employer]ose [facility]: Dose Right [facility]: Teradose 4D [facility]: [employer] LIMITATIONS: None. FINDINGS: The visualized thyroid gland enhances normally. The mediastinal vasculature enhances normally. There is no intraluminal filling defect to suggest pulmonary most. Negative for thoracic aortic aneurysm or dissection. Heart and pericardium are unremarkable. No mediastinal or hilar adenopathy. Limited evaluation of upper abdomen unremarkable. Osseous structures grossly intact. There is no pneumothorax. The visualized airways are patent. Elevation right hemidiaphragm. Subsegmental atelectasis right lung base. Lungs otherwise clear IMPRESSION: No PE. No aneurysm or dissection. Subsegmental atelectasis right lung base. Elevation right hemidiaphragm. TECHNICAL DOCUMENTATION: Quality ID # 436: Final reports with documentation of one or more dose reduction techniques (e.g., Automated exposure control, adjustment of the mA and/or kV according to patient size, use of iterative reconstruction technique) copyright 2011 [email or web address]- All Rights Reserved
[2018-06-23] MEDS ORDERED: GABAPENTIN 300 MG CAPSULE PO ONE (22:30)
--- NOTE | 2018-06-23 22:56 | EKG REPORT ---
SEVERITY:- ABNORMAL ECG - SINUS RHYTHM INCOMPLETE RBBB AND LAFB : Confirmed by: Jaspal Garcia 23-Jun-2018 22:55:55
--- NOTE | 2018-06-23 22:56 | EKG REPORT ---
SEVERITY:- ABNORMAL ECG - SINUS BRADYCARDIA FIRST DEGREE AV BLOCK INCOMPLETE RIGHT BUNDLE BRANCH BLOCK : Confirmed by: Jaspal Garcia 23-Jun-2018 22:55:35
[2018-06-24 02:04] LABS: CREATINE KINASE MB 1.02 ng/mL (<4.55)
[2018-06-24 02:07] LABS: TROPONIN I < 0.012 ng/mL
[2018-06-24] MEDS: OXYCODONE-ACETAMINOPHEN 5-325 MG TABLET PO PRN ×3 (05:38→18:51)
[2018-06-24] MEDS: PANTOPRAZOLE SODIUM 40 MG TABLET.DR PO SCH ×2 (05:38→16:58)
[2018-06-24] MEDS: GABAPENTIN 300 MG CAPSULE PO SCH ×3 (05:38→21:32)
[2018-06-24 08:30] LABS: ABSOLUTE BASOPHILS # (AUTO) 0.1 10^3/uL (0.0-0.2); ABSOLUTE EOSINOPHILS # (AUTO) 0.6 10^3/uL (0.0-0.6); ABSOLUTE LYMPHOCYTES (AUTO) 2.3 10^3/uL (0.5-4.7); ABSOLUTE MONOCYTES (AUTO) 0.5 10^3/uL (0.1-1.4); ABSOLUTE NEUT (AUTO) 2.3 10^3/uL (1.7-8.2); EOSINOPHILS % (AUTO) 10.9 % (0-6); HEMATOCRIT 42.3 % (37.9-51.0); HEMOGLOBIN 14.9 g/dL (13.5-17.0); LYMPHOCYTES % (AUTO) 39.6 % (13-45); MEAN CORPUSCULAR HEMOGLOBIN 30.3 pg (27.0-33.4); MEAN CORPUSCULAR HGB CONC 35.3 g/dL (32.0-36.0); MEAN CORPUSCULAR VOLUME 86 fl (80-97); MONOCYTES % (AUTO) 8.2 % (3-13); PLATELET COUNT 101 10^3/uL (150-450); RED BLOOD COUNT 4.93 10^6/uL (4.35-5.55); RED CELL DISTRIBUTION WIDTH 13.1 % (11.5-14.0); SEGMENTED NEUTROPHILS % (AUTO) 40.3 % (42-78); TOTAL CELLS COUNTED % (AUTO) 100 %; WHITE BLOOD COUNT 5.7 10^3/uL (4.0-10.5)
[2018-06-24 08:39] LABS: ALANINE AMINOTRANSFERASE 46 U/L (21-72); ALBUMIN 3.8 g/dL (3.5-5.0); ALKALINE PHOSPHATASE 79 U/L (38-126); ANION GAP 9 (5-19); ASPARTATE AMINO TRANSFERASE 28 U/L (17-59); BILIRUBIN,DIRECT 0.4 mg/dL (0.0-0.4); BILIRUBIN,TOTAL 0.6 mg/dL (0.2-1.3); BLOOD UREA NITROGEN 19 mg/dL (7-20); CALCIUM 9.2 mg/dL (8.4-10.2); CARBON DIOXIDE 30 mmol/L (22-30); CHLORIDE 104 mmol/L (98-107); GLUCOSE 128 mg/dL (75-110); TOTAL PROTEIN 6.8 g/dL (6.3-8.2)
[2018-06-24 08:46] LABS: CREATINE KINASE MB 1.05 ng/mL (<4.55)
[2018-06-24 08:49] LABS: TROPONIN I < 0.012 ng/mL
[2018-06-24] MEDS ORDERED: (PENDING PHARMACY ID) (Amlodipine/Valsartan/Hcthiazid [Amlod-Valsa-Hctz 10-320-25 Mg] 1 TA PO SCH (10:00)
--- NOTE | 2018-06-24 10:37 | RADIOLOGY REPORT (SQ) ---
EXAM DESCRIPTION: MRA HEAD WITHOUT COMPLETED DATE/TIME: 06/24/2018 10:17 am REASON FOR STUDY: lt side headche /numbness G50.0 TRIGEMINAL NEURALGIA R07.89 OTHER CHEST PAIN R06 .02 SHORTNESS OF BREATH COMPARISON: None. TECHNIQUE: Axial 3-D [id number]-[id number]-[id number] acquisition imaging performed through the brain in the area of t he [place] of [place]. Images reformatted using 3-D MIPS. LIMITATIONS: None. FINDINGS: SOURCE IMAGES: No unexpected findings on source images. No large masses. 3-D MIP: No aneurysm. No occlusions. No significant stenosis. Left posterior cervical arises from the anterior circulation. OTHER: No other significant finding. IMPRESSION: NORMAL MRA OF THE [place]. TECHNICAL DOCUMENTATION: JOB ID: [id number]- All Rights Reserved Reading location - IP/workstation name: [email or web address]
--- NOTE | 2018-06-24 10:44 | RADIOLOGY REPORT (SQ) ---
EXAM DESCRIPTION: MRI HEAD WITHOUT COMPLETED DATE/TIME: 06/24/2018 10:17 am REASON FOR STUDY: let side headche G50.0 TRIGEMINAL NEURALGIA R07.89 OTHER CHEST PAIN R06.02 YONI RTNESS OF BREATH COMPARISON: None. TECHNIQUE: Multiplanar imaging includes non-contrasted T1, T2, FLAIR, and diffusion with ADC map seq uences. Images stored on PACS. LIMITATIONS: None. FINDINGS: ANATOMY: No anomalies. Normal vascular flow voids. Pituitary fossa normal. CSF SPACES: Normal in size and contour. No hemorrhage. CEREBRUM: Sulci and gyri normal in size and contour. Normal white matter signal on FLAIR imaging. No evidence of hemorrhage, mass, or extraaxial fluid collection. POSTERIOR FOSSA: No signal alteration. No hemorrhage. No edema, masses or mass effect. Internal lila tory canals, cerebello-pontine angles, mastoids normal. DIFFUSION IMAGING: Negative for acute or sub-acute infarction. ORBITS: No masses. Globes normal. PARANASAL SINUSES: Mild chronic sinus disease. OTHER: No other significant finding. IMPRESSION: NORMAL MRI OF THE BRAIN WITHOUT INTRAVENOUS GADOLINIUM CONTRAST. EVIDENCE OF ACUTE STROKE: NO. TECHNICAL DOCUMENTATION: JOB ID: [id number] [employer]- All Rights Reserved Reading location - IP/workstation name: [email or web address]
[2018-06-24] MEDS: INSULIN LISPRO 100 UNIT/ML 3 ML VIAL SUBCUT SCH ×3 (10:46→17:04)
[2018-06-24] MEDS: DOCUSATE SODIUM 100 MG CAPSULE PO SCH ×2 (10:47→16:58)
[2018-06-24] MEDS: VALSARTAN 160 MG TABLET PO SCH (10:47)
[2018-06-24] MEDS: POTASSIUM CHLORIDE 10 MEQ CAPSULE.ER PO SCH (10:48)
[2018-06-24] MEDS: TORSEMIDE 20 MG TABLET PO SCH (10:48)
[2018-06-24] MEDS: AMLODIPINE BESYLATE 10 MG TABLET PO SCH (10:48)
[2018-06-24] MEDS: HYDROCHLOROTHIAZIDE 25 MG TABLET PO SCH (10:48)
[2018-06-24] MEDS: FAMOTIDINE 20 MG TABLET PO SCH ×2 (10:48→16:58)
[2018-06-24] MEDS: ENOXAPARIN SODIUM INJ 40 MG/0.4 ML DISP.SYRIN SUBCUT SCH (10:49)
--- NOTE | 2018-06-24 10:53 | PDOC PROGRESS REPORT ---
Subjective Progress Note for:: 06/24/18 Subjective:: Patient is currently doing fair Denied any active chest pain Denied any shortness of the breath Patient MRI and MRA of the head is negative Patient all cardiac enzyme is negative Reason For Visit: CHEST PAIN Physical Exam Vital Signs: Temp Pulse Resp BP Pulse Ox 97.5 F 42 L 18 143/69 H 97 06/24/18 08:06 06/24/18 08:06 06/24/18 08:06 06/24/18 08:06 06/24/18 08:06 Intake & Output 06/23/18 06/24/18 06/25/18 06:59 06:59 06:59 Weight 85.7 kg General appearance: PRESENT: no acute distress, well-developed, well-nourished Head exam: PRESENT: atraumatic, normocephalic Eye exam: PRESENT: conjunctiva pink, EOMI, PERRLA. ABSENT: scleral icterus Ear exam: PRESENT: normal external ear exam Mouth exam: PRESENT: moist, tongue midline Neck exam: PRESENT: full ROM. ABSENT: carotid bruit, JVD, lymphadenopathy, thyromegaly Respiratory exam: PRESENT: clear to auscultation amando Cardiovascular exam: PRESENT: RRR. ABSENT: diastolic murmur, rubs, systolic murmur Pulses: PRESENT: normal dorsalis pedis pul, +2 pedal pulses bilateral Vascular exam: PRESENT: normal capillary refill GI/Abdominal exam: PRESENT: normal bowel sounds, soft. ABSENT: distended, guarding, mass, organolmegaly, rebound, tenderness Rectal exam: PRESENT: deferred Musculoskeletal exam: PRESENT: ambulatory Neurological exam: PRESENT: alert, awake, oriented to person, oriented to place, oriented to time, oriented to situation, CN II-XII grossly intact. ABSENT: motor sensory deficit Psychiatric exam: PRESENT: appropriate affect, normal mood. ABSENT: homicidal ideation, suicidal ideation Skin exam: PRESENT: dry, intact, warm. ABSENT: cyanosis, rash Results Laboratory Results: 06/24/18 07:46 06/24/18 07:46 06/23/18 06/23/18 06/23/18 19:10 19:10 19:10 WBC 6.7 RBC 5.34 Hgb 16.2 Hct 45.9 MCV 86 MCH 30.3 MCHC 35.3 RDW 13.1 Plt Count 124 L Seg Neutrophils % 40.2 L Lymphocytes % 40.6 Monocytes % 8.1 Eosinophils % 10.2 H Basophils % 0.9 Absolute Neutrophils 2.7 Absolute Lymphocytes 2.7 Absolute Monocytes 0.5 Absolute Eosinophils 0.7 H Absolute Basophils 0.1 Sodium 142.4 Potassium 3.9 Chloride 104 Carbon Dioxide 26 Anion Gap 12 BUN 16 Creatinine 0.83 Est GFR ( Amer) > 60 Est GFR (Non-Af Amer) > 60 Glucose 147 H Calcium 9.7 Total Bilirubin 0.6 AST 36 ALT 44 Alkaline Phosphatase 94 Total Protein 7.6 Albumin 4.3 TSH 3.61 Free T4 1.11 Free T3 pg/mL 4.28 06/24/18 06/24/18 07:46 07:46 WBC 5.7 RBC 4.93 Hgb 14.9 Hct 42.3 MCV 86 MCH 30.3 MCHC 35.3 RDW 13.1 Plt Count 101 L Seg Neutrophils % 40.3 L Lymphocytes % 39.6 Monocytes % 8.2 Eosinophils % 10.9 H Basophils % 1.0 Absolute Neutrophils 2.3 Absolute Lymphocytes 2.3 Absolute Monocytes 0.5 Absolute Eosinophils 0.6 Absolute Basophils 0.1 Sodium 143.0 Potassium 4.0 Chloride 104 Carbon Dioxide 30 Anion Gap 9 BUN 19 Creatinine 0.83 Est GFR ( Amer) > 60 Est GFR (Non-Af Amer) > 60 Glucose 128 H Calcium 9.2 Total Bilirubin 0.6 AST 28 ALT 46 Alkaline Phosphatase 79 Total Protein 6.8 Albumin 3.8 TSH Free T4 Free T3 pg/mL 06/23/18 06/23/18 06/23/18 19:10 19:10 19:10 Creatine Kinase 181 H CK-MB (CK-2) 1.41 Troponin I < 0.012 NT-Pro-B Natriuret Pep 247 06/24/18 06/24/18 06/24/18 01:17 01:17 07:46 Creatine Kinase 147 119 CK-MB (CK-2) 1.02 Troponin I < 0.012 NT-Pro-B Natriuret Pep 06/24/18 07:46 Creatine Kinase CK-MB (CK-2) 1.05 Troponin I < 0.012 NT-Pro-B Natriuret Pep Impressions: Chest/Abdomen CTA 06/23/18 00:00 IMPRESSION: No PE. No aneurysm or dissection. Subsegmental atelectasis right lung base. Elevation right hemidiaphragm. TECHNICAL DOCUMENTATION: Quality ID # 436: Final reports with documentation of one or more dose reduction techniques (e.g., Automated exposure control, adjustment of the mA and/or kV according to patient size, use of iterative reconstruction technique) copyright 2011 [employer]- All Rights Reserved Chest X-Ray 06/23/18 18:52 IMPRESSION: NO ACUTE FINDINGS. Brain MRI with MRA 06/24/18 08:00 IMPRESSION: NORMAL MRA OF THE [place]. Head MRI 06/24/18 08:00 IMPRESSION: NORMAL MRI OF THE BRAIN WITHOUT INTRAVENOUS GADOLINIUM CONTRAST. EVIDENCE OF ACUTE STROKE: NO. Assessment & Plan - Diagnosis (1) Chest pain Qualifiers: Chest pain type: unspecified Qualified Code(s): R07.9 - Chest pain, unspecified Is this a current diagnosis for this admission?: Yes Plan: Patient initial work-up is all negative will wait for the cardiology for further evaluations (2) Bradycardia Is this a current diagnosis for this admission?: Yes Plan: For the cardiology (3) Diabetic polyneuropathy associated with type 2 diabetes mellitus Is this a current diagnosis for this admission?: Yes Plan: Continue the gabapentin (4) Trigeminal neuralgia of left side of face Is this a current diagnosis for this admission?: Yes Plan: Continues to gabapentin (5) COPD (chronic obstructive pulmonary disease) Qualifiers: Emphysema type: unspecified Is this a current diagnosis for this admission?: Yes Plan: Mr. HONEYCUTT nebulizer (6) HTN (hypertension) Qualifiers: Hypertension type: essential hypertension Qualified Code(s): I10 - Essential (primary) hypertension Is this a current diagnosis for this admission?: Yes (7) Osteoarthritis Qualifiers: Osteoarthritis location: multiple joints Is this a current diagnosis for this admission?: Yes - Time Time Spent with patient: 15-24 minutes Medications reviewed and adjusted accordingly: Yes Anticipated discharge: Other Within: Other - Plan Summary Plan Summary: We will wait for the cardiology for evaluations for the chest pain and bradycardia
[2018-06-24 14:16] LABS: CREATINE KINASE MB 1.09 ng/mL (<4.55)
[2018-06-24 14:23] LABS: TROPONIN I < 0.012 ng/mL
--- NOTE | 2018-06-24 15:11 | Progress Note ---
Provider Note Provider Note: CARDIOLOGY CONSULTATION by Dr. Ila Martínez on 06/24/2018. Current Medications Generic Name Dose Route Start Last Admin Trade Name Freq PRN Reason Stop Dose Admin Acetaminophen 650 mg 06/23/18 21:31 Tylenol 325 Mg Tablet PO 07/23/18 21:30 Q4HP PRN FOR PAIN OR TEMP Albuterol/Ipratropium 3 ml 06/23/18 21:31 Duoneb 3 Ml Ampul NEB 07/23/18 21:30 [id number] PRN SHORTNESS OF BREATH Amlodipine Besylate 10 mg 06/24/18 10:00 06/24/18 10:48 Norvasc 10 Mg Tablet PO 07/24/18 09:59 10 mg DAILY JASMIN Administration Dextrose 12.5 gm 06/23/18 21:34 Dextrose Inj 50% Syringe (25 Gm/50 Ml) IV 07/23/18 21:33 PRN PRN FOR BG 50-69 IN ALERT PATIENT Protocol Dextrose 25 gm 06/23/18 21:34 Dextrose Inj 50% Syringe (25 Gm/50 Ml) IV 07/23/18 21:33 PRN PRN PER PROTOCOL Protocol Docusate Sodium 100 mg 06/24/18 10:00 06/24/18 10:47 Colace 100 Mg Capsule PO 07/24/18 09:59 100 mg BID JASMIN Administration Enoxaparin Sodium 40 mg 06/24/18 10:00 06/24/18 10:49 Lovenox Inj 40 Mg/0.4 Ml Disp.Syrin SUBCUT 07/24/18 09:59 Not Given DAILY JASMIN Famotidine 20 mg 06/24/18 10:00 06/24/18 10:48 Pepcid 20 Mg Tablet PO 07/24/18 09:59 20 mg BID JASMIN Administration Gabapentin 600 mg 06/24/18 06:00 06/24/18 13:37 Neurontin 300 Mg Capsule PO 07/24/18 05:59 600 mg Q8 JASMIN Administration Glucagon 1 mg 06/23/18 21:34 Glucagen Inj 1 Mg Vial IM 07/23/18 21:33 PRN PRN Evaluate for BG < 70 Protocol Glucose 15 gm 06/23/18 21:34 Glutose 40% Gel 15 Gm Tube PO 07/23/18 21:33 PRN PRN FOR BG 50-69 IN ALERT PATIENT Protocol Glucose 30 gm 06/23/18 21:34 Glutose 40% Gel 15 Gm Tube PO 07/23/18 21:33 PRN PRN FOR BG < 50 IN ALERT PATIENT Protocol Hydrochlorothiazide 25 mg 06/24/18 10:00 06/24/18 10:48 Hydrodiuril 25 Mg Tablet PO 07/24/18 09:59 25 mg DAILY JASMIN Administration Insulin Human Lispro 0 - 12 unit 06/23/18 22:00 06/24/18 14:45 Humalog Insulin 100 Unit/1 Ml 3 Ml Vial SUBCUT 07/23/18 21:59 Not Given ACHS [facility] Protocol Oxycodone/Acetaminophen 1 tab 06/23/18 21:31 06/24/18 12:23 Percocet 5-325 Mg Tablet PO 06/30/18 21:30 1 tab Q6HP PRN Administration FOR PAIN Pantoprazole Sodium 40 mg 06/24/18 06:00 06/24/18 05:[address] Tablet PO 07/24/18 05:59 40 mg BID@0600,1700 JASMIN Administration Potassium Chloride 10 meq 06/24/18 10:00 06/24/18 10:48 Klor-Con 10 Meq Capsule Er PO 07/24/18 09:59 10 meq DAILY JASMIN Administration Torsemide 20 mg 06/24/18 10:00 06/24/18 10:48 Demadex 20 Mg Tablet PO 07/24/18 09:59 20 mg DAILY JASMIN Administration Valsartan 320 mg 06/24/18 10:00 06/24/18 10:47 Diovan 160 Mg Tablet PO 07/24/18 09:59 320 mg DAILY JASMIN Administration Discontinued Medications Generic Name Dose Route Start Last Admin Trade Name Freq PRN Reason Stop Dose Admin Aspirin 324 mg 06/23/18 18:52 06/23/18 19:21 Aspirin 81 Mg Chewable Tablet PO 06/23/18 18:53 324 mg NOW ONE Administration Gabapentin 600 mg 06/23/18 22:30 06/23/18 23:15 Neurontin 300 Mg Capsule PO 06/23/18 22:31 600 mg NOW ONE Administration Morphine Sulfate 4 mg 06/23/18 22:19 06/23/18 22:24 Morphine 10 Mg/Ml Inj IV 06/23/18 22:20 4 mg NOW ONE Administration Ondansetron HCl 4 mg 06/23/18 22:19 06/23/18 22:23 Zofran Inj/Pf 4 Mg/2 Ml Sdv IV 06/23/18 22:20 4 mg NOW ONE Administration Amlodipine/Valsartan/Hcthiazid [Giqqk-Cfppl-Ggte 10-320-25 mg] 1 tab PO DAILY 08/15/16 Omeprazole 40 mg PO DAILY 08/15/16 Potassium Chloride [Klor-Con 10 Meq Capsule ER] 10 meq PO DAILY 08/15/16 Ranitidine HCl [Zantac 150 mg Tablet] 150 mg PO BID 08/15/16 Gabapentin [Neurontin] 600 mg PO Q8 06/23/18 Torsemide [Demadex 20 mg Tablet] 20 mg PO DAILY 06/23/18 Aspirin/Caffeine [Bc Arthritis Powder Packet] 2 packet PO DAILY PRN 06/24/18 Labs- Entire Visit 06/23/18 06/23/18 06/23/18 19:10 19:10 19:10 WBC 6.7 RBC 5.34 Hgb 16.2 Hct 45.9 MCV 86 MCH 30.3 MCHC 35.3 RDW 13.1 Plt Count 124 L Seg Neutrophils % 40.2 L Lymphocytes % 40.6 Monocytes % 8.1 Eosinophils % 10.2 H Basophils % 0.9 Absolute Neutrophils 2.7 Absolute Lymphocytes 2.7 Absolute Monocytes 0.5 Absolute Eosinophils 0.7 H Absolute Basophils 0.1 ESR Sodium 142.4 Potassium 3.9 Chloride 104 Carbon Dioxide 26 Anion Gap 12 BUN 16 Creatinine 0.83 Est GFR ( Amer) > 60 Est GFR (Non-Af Amer) > 60 Glucose 147 H POC Glucose Calcium 9.7 Total Bilirubin 0.6 Direct Bilirubin 0.3 Neonat Total Bilirubin Not Reportable Neonat Direct Bilirubin Not Reportable Neonat Indirect Bili Not Reportable AST 36 ALT 44 Alkaline Phosphatase 94 Creatine Kinase 181 H CK-MB (CK-2) 1.41 Troponin I < 0.012 NT-Pro-B Natriuret Pep Total Protein 7.6 Albumin 4.3 TSH Free T4 Free T3 pg/mL 06/23/18 06/23/18 06/23/18 19:10 19:10 19:10 WBC RBC Hgb Hct MCV MCH MCHC RDW Plt Count Seg Neutrophils % Lymphocytes % Monocytes % Eosinophils % Basophils % Absolute Neutrophils Absolute Lymphocytes Absolute Monocytes Absolute Eosinophils Absolute Basophils ESR 14 Sodium Potassium Chloride Carbon Dioxide Anion Gap BUN Creatinine Est GFR ( Amer) Est GFR (Non-Af Amer) Glucose POC Glucose Calcium Total Bilirubin Direct Bilirubin Neonat Total Bilirubin Neonat Direct Bilirubin Neonat Indirect Bili AST ALT Alkaline Phosphatase Creatine Kinase CK-MB (CK-2) Troponin I NT-Pro-B Natriuret Pep 247 Total Protein Albumin TSH 3.61 Free T4 1.11 Free T3 pg/mL 4.28 06/24/18 06/24/18 06/24/18 01:17 01:17 07:46 WBC RBC Hgb Hct MCV MCH MCHC RDW Plt Count Seg Neutrophils % Lymphocytes % Monocytes % Eosinophils % Basophils % Absolute Neutrophils Absolute Lymphocytes Absolute Monocytes Absolute Eosinophils Absolute Basophils ESR Sodium Potassium Chloride Carbon Dioxide Anion Gap BUN Creatinine Est GFR ( Amer) Est GFR (Non-Af Amer) Glucose POC Glucose Calcium Total Bilirubin Direct Bilirubin Neonat Total Bilirubin Neonat Direct Bilirubin Neonat Indirect Bili AST ALT Alkaline Phosphatase Creatine Kinase 147 119 CK-MB (CK-2) 1.02 Troponin I < 0.012 NT-Pro-B Natriuret Pep Total Protein Albumin TSH Free T4 Free T3 pg/mL 06/24/18 06/24/18 06/24/18 07:46 07:46 07:46 WBC 5.7 RBC 4.93 Hgb 14.9 Hct 42.3 MCV 86 MCH 30.3 MCHC 35.3 RDW 13.1 Plt Count 101 L Seg Neutrophils % 40.3 L Lymphocytes % 39.6 Monocytes % 8.2 Eosinophils % 10.9 H Basophils % 1.0 Absolute Neutrophils 2.3 Absolute Lymphocytes 2.3 Absolute Monocytes 0.5 Absolute Eosinophils 0.6 Absolute Basophils 0.1 ESR Sodium 143.0 Potassium 4.0 Chloride 104 Carbon Dioxide 30 Anion Gap 9 BUN 19 Creatinine 0.83 Est GFR ( Amer) > 60 Est GFR (Non-Af Amer) > 60 Glucose 128 H POC Glucose Calcium 9.2 Total Bilirubin 0.6 Direct Bilirubin 0.4 Neonat Total Bilirubin Not Reportable Neonat Direct Bilirubin Not Reportable Neonat Indirect Bili Not Reportable AST 28 ALT 46 Alkaline Phosphatase 79 Creatine Kinase CK-MB (CK-2) 1.05 Troponin I < 0.012 NT-Pro-B Natriuret Pep Total Protein 6.8 Albumin 3.8 TSH Free T4 Free T3 pg/mL 06/24/18 06/24/18 06/24/18 08:04 12:39 13:15 WBC RBC Hgb Hct MCV MCH MCHC RDW Plt Count Seg Neutrophils % Lymphocytes % Monocytes % Eosinophils % Basophils % Absolute Neutrophils Absolute Lymphocytes Absolute Monocytes Absolute Eosinophils Absolute Basophils ESR Sodium Potassium Chloride Carbon Dioxide Anion Gap BUN Creatinine Est GFR ( Amer) Est GFR (Non-Af Amer) Glucose POC Glucose 126 H 112 H Calcium Total Bilirubin Direct Bilirubin Neonat Total Bilirubin Neonat Direct Bilirubin Neonat Indirect Bili AST ALT Alkaline Phosphatase Creatine Kinase 123 CK-MB (CK-2) Troponin I NT-Pro-B Natriuret Pep Total Protein Albumin TSH Free T4 Free T3 pg/mL 06/24/18 13:15 WBC RBC Hgb Hct MCV MCH MCHC RDW Plt Count Seg Neutrophils % Lymphocytes % Monocytes % Eosinophils % Basophils % Absolute Neutrophils Absolute Lymphocytes Absolute Monocytes Absolute Eosinophils Absolute Basophils ESR Sodium Potassium Chloride Carbon Dioxide Anion Gap BUN Creatinine Est GFR ( Amer) Est GFR (Non-Af Amer) Glucose POC Glucose Calcium Total Bilirubin Direct Bilirubin Neonat Total Bilirubin Neonat Direct Bilirubin Neonat Indirect Bili AST ALT Alkaline Phosphatase Creatine Kinase CK-MB (CK-2) 1.09 Troponin I < 0.012 NT-Pro-B Natriuret Pep Total Protein Albumin TSH Free T4 Free T3 pg/mL Chest/Abdomen CTA 06/23/18 00:00 IMPRESSION: No PE. No aneurysm or dissection. Subsegmental atelectasis right lung base. Elevation right hemidiaphragm. TECHNICAL DOCUMENTATION: Quality ID # [id number]: Final reports with documentation of one or more dose reduction techniques (e.g., Automated exposure control, adjustment of the mA and/or kV according to patient size, use of iterative reconstruction technique) copyright 2011 [employer]- All Rights Reserved Chest X-Ray 06/23/18 18:52 IMPRESSION: NO ACUTE FINDINGS. Brain MRI with MRA 06/24/18 08:00 IMPRESSION: NORMAL MRA OF THE [place] OF [place]. Head MRI 06/24/18 08:00 IMPRESSION: NORMAL MRI OF THE BRAIN WITHOUT INTRAVENOUS GADOLINIUM CONTRAST. EVIDENCE OF ACUTE STROKE: NO.
--- NOTE | 2018-06-24 15:22 | PDOC CONSULTATION ---
Consultation-Blank Consultation: CARDIOLOGY CONSULTATION by Dr. Ila Martínez on 06/24/2018. Consult requested by Dr. Maximilian Mcdowell. Chest pain and bradycardia with dizziness and weakness. HISTORY PRESENT ILLNESS: Patient is a 63-year-old male with known history of hypertension, diabetes mellitus, and temporomandibular joint disease, states that since the past 2 days he has been having pain in the left front of the chest with radiation to the neck. The chest is reproducible pain by pressing on the chest and the neck pain is increased with movements of the neck. Hence clearly noncardiac these pains are not associate with any shortness of breath. But he is also found to be very bradycardic heart rate in 30s to the 40s but with a stable blood pressure, but the patient complaining of severe dizziness and severe fatigue and weakness. He states that the onset of chest pain were about 2 weeks ago and was also found to be bradycardic at that time. He states he had one episode of dizziness with syncope, but did not follow through with seeing a custodial engineer as recommended by Dr. Esteban. He has no prior history of AK or clear-cut anginal symptoms. There is no history of PND orthopnea. There is dizziness, and the patient also has vertigo and notes the symptoms are confounding as to whether this is cardiac in etiology secondary to his heart rate being low. He also has symptoms suggestive of sleep apnea and has nightmares. Past Medical History Cardiac Medical History: Reports: Hypertension. There is no documented coronary artery disease. The patient 2017 had chest pain and had a negative IV Lexiscan Cardiolite stress test. The patient has been bradycardic with dizzy spells, and one episode of syncope as mentioned earlier. That episode of syncope was not worked on medically. Pulmonary Medical History: Reports: Chronic Obstructive Pulmonary Disease (COPD) no history of pulmonary embolism. He has symptoms suggestive of sleep apnea Endocrine Medical History: Reports: Diabetes Mellitus Type 2 GI Medical History: Reports: Gastroesophageal Reflux Disease, and also has a hiatal hernia. No history of GI bleed. Musculoskeltal Medical History: Reports: Arthritis Musculoskeletal History Note: Chronic back pain Past Surgical History Past Surgical History: Reports: Orthopedic Surgery Social History Information Source: Patient Smoking Status: Never Smoker Frequency of Alcohol Use: Occasional Hx Recreational Drug Use: No Hx Prescription Drug Abuse: No Family History Family History: CAD, Hypertension ALLERGIES: No known allergies. RESUSCITATION STATUS: The patient is a full code. His brother is surrogate healthcare decision maker Review of Systems Constitutional: PRESENT: fatigue, weakness. ABSENT: chills, fever(s), headache(s), weight gain, weight loss Eyes: ABSENT: visual disturbances Ears: ABSENT: hearing changes Cardiovascular: PRESENT: chest pain. ABSENT: dyspnea on exertion, edema, orthropnea, palpitations Respiratory: ABSENT: cough, hemoptysis Gastrointestinal: ABSENT: abdominal pain, constipation, diarrhea, hematemesis, hematochezia, nausea, vomiting Genitourinary: ABSENT: dysuria, hematuria Musculoskeletal: PRESENT: back pain. ABSENT: joint swelling Integumentary: ABSENT: rash, wounds Neurological: ABSENT: abnormal gait, abnormal speech, confusion, dizziness, focal weakness, no history of TIA CVA, no migraines. Psychiatric: ABSENT: anxiety, depression, homidical ideation, suicidal ideation Endocrine: ABSENT: cold intolerance, heat intolerance, menstrual abnormalities, polydipsia, polyuria. No history of thyroid disease. Hematologic/Lymphatic: ABSENT: easy bleeding, easy bruising, lymphadenopathy RENAL: No history of chronic kidney disease. No symptoms of enlarged prostate. No hematuria pyuria or dysuria. No symptoms a UTI PHYSICAL EXAMINATION: The patient is mildly overweight. He is well-groomed. At present in no acute distress. He does seem to be slightly anxious. Selected Entries 06/24/18 06/24/18 08:06 08:25 Temperature 97.5 F Temperature Oral Source Pulse Rate 42 L Respiratory 18 Rate Blood Pressure 143/69 H Blood Pressure 93 Mean BP Location Left Arm BP Position Supine O2 Sat by Pulse 97 Oximetry Fraction of 21 Inspired Oxygen (FIO2) Oxygen Delivery Room Air Method HEAD: Atraumatic, normocephalic. EYES: Pupils equal round and reactive to light, extraocular movements intact, sclera anicteric, conjunctiva are normal. ENT: TMs normal, nares patent, oropharynx clear without exudates. He has Mallampati class III oral cavity configuration. Moist mucous membranes. NECK: Normal range of motion, supple without lymphadenopathy or JVD. Carotids are equal there is no bruits. There is no thyromegaly. There is no accessory muscles of respiration in use. Trachea central LUNGS: Breath sounds clear to auscultation bilaterally and equal. No wheezes rales or rhonchi. On palpation there is no chest wall tenderness. HEART: S1-S2 is heard. S1 is of normal intensity. There is no S3 gallop. There is no S4 gallop. There is systolic murmur left sternal border and apex without radiation. There is no rub.. ABDOMEN: Soft, nontender, normoactive bowel sounds. There is no hepatosplenic megaly no guarding, no rebound. No masses appreciated. EXTREMITIES: Normal range of motion, no pitting or edema. No clubbing or cyanosis. Femorals are well felt. There is no femoral bruits. Leg pulses are well felt. There is no DVT or cellulitis. There is no calf tenderness NEUROLOGICAL: Cranial nerves II through XII grossly intact. Normal speech, normal gait. The patient is awake alert oriented x3 with no focal deficits. PSYCH: Normal mood, normal affect. The patient judgment and insight are intact SKIN: Warm, Dry, normal turgor, no rashes or lesions noted. There is no petechia or ecchymosis. Current Medications Generic Name Dose Route Start Last Admin Trade Name Freq PRN Reason Stop Dose Admin Acetaminophen 650 mg 06/23/18 21:31 Tylenol 325 Mg Tablet PO 07/23/18 21:30 Q4HP PRN FOR PAIN OR TEMP Albuterol/Ipratropium 3 ml 06/23/18 21:31 Duoneb 3 Ml Ampul NEB 07/23/18 21:30 [id number] PRN SHORTNESS OF BREATH Amlodipine Besylate 10 mg 06/24/18 10:00 06/24/18 10:48 Norvasc 10 Mg Tablet PO 07/24/18 09:59 10 mg DAILY JASMIN Administration Dextrose 12.5 gm 06/23/18 21:34 Dextrose Inj 50% Syringe (25 Gm/50 Ml) IV 07/23/18 21:33 PRN PRN FOR BG 50-69 IN ALERT PATIENT Protocol Dextrose 25 gm 06/23/18 21:34 Dextrose Inj 50% Syringe (25 Gm/50 Ml) IV 07/23/18 21:33 PRN PRN PER PROTOCOL Protocol Docusate Sodium 100 mg 06/24/18 10:00 06/24/18 10:47 Colace 100 Mg Capsule PO 07/24/18 09:59 100 mg BID JASMIN Administration Enoxaparin Sodium 40 mg 06/24/18 10:00 06/24/18 10:49 Lovenox Inj 40 Mg/0.4 Ml Disp.Syrin SUBCUT 07/24/18 09:59 Not Given DAILY JASMIN Famotidine 20 mg 06/24/18 10:00 06/24/18 10:48 Pepcid 20 Mg Tablet PO 07/24/18 09:59 20 mg BID JASMIN Administration Gabapentin 600 mg 06/24/18 06:00 06/24/18 13:37 Neurontin 300 Mg Capsule PO 07/24/18 05:59 600 mg Q8 JASMIN Administration Glucagon 1 mg 06/23/18 21:34 Glucagen Inj 1 Mg Vial IM 07/23/18 21:33 PRN PRN Evaluate for BG < 70 Protocol Glucose 15 gm 06/23/18 21:34 Glutose 40% Gel 15 Gm Tube PO 07/23/18 21:33 PRN PRN FOR BG 50-69 IN ALERT PATIENT Protocol Glucose 30 gm 06/23/18 21:34 Glutose 40% Gel 15 Gm Tube PO 07/23/18 21:33 PRN PRN FOR BG < 50 IN ALERT PATIENT Protocol Hydrochlorothiazide 25 mg 06/24/18 10:00 06/24/18 10:48 Hydrodiuril 25 Mg Tablet PO 07/24/18 09:59 25 mg DAILY JSAMIN Administration Insulin Human Lispro 0 - 12 unit 06/23/18 22:00 06/24/18 14:45 Humalog Insulin 100 Unit/1 Ml 3 Ml Vial SUBCUT 07/23/18 21:59 Not Given ACHS [facility] Protocol Oxycodone/Acetaminophen 1 tab 06/23/18 21:31 06/24/18 12:23 Percocet 5-325 Mg Tablet PO 06/30/18 21:30 1 tab Q6HP PRN Administration FOR PAIN Pantoprazole Sodium 40 mg 06/24/18 06:00 06/24/18 05:[address] Tablet PO 07/24/18 05:59 40 mg BID@0600,1700 JASMIN Administration Potassium Chloride 10 meq 06/24/18 10:00 06/24/18 10:48 Klor-Con 10 Meq Capsule Er PO 07/24/18 09:59 10 meq DAILY JASMIN Administration Torsemide 20 mg 06/24/18 10:00 06/24/18 10:48 Demadex 20 Mg Tablet PO 07/24/18 09:59 20 mg DAILY JASMIN Administration Valsartan 320 mg 06/24/18 10:00 06/24/18 10:47 Diovan 160 Mg Tablet PO 07/24/18 09:59 320 mg DAILY JASMIN Administration Discontinued Medications Generic Name Dose Route Start Last Admin Trade Name Carmen PRN Reason Stop Dose Admin Aspirin 324 mg 06/23/18 18:52 06/23/18 19:21 Aspirin 81 Mg Chewable Tablet PO 06/23/18 18:53 324 mg NOW ONE Administration Gabapentin 600 mg 06/23/18 22:30 06/23/18 23:15 Neurontin 300 Mg Capsule PO 06/23/18 22:31 600 mg NOW ONE Administration Morphine Sulfate 4 mg 06/23/18 22:19 06/23/18 22:24 Morphine 10 Mg/Ml Inj IV 06/23/18 22:20 4 mg NOW ONE Administration Ondansetron HCl 4 mg 06/23/18 22:19 06/23/18 22:23 Zofran Inj/Pf 4 Mg/2 Ml Sdv IV 06/23/18 22:20 4 mg NOW ONE Administration Amlodipine/Valsartan/Hcthiazid [Irowt-Dxlng-Bvho 10-320-25 mg] 1 tab PO DAILY 08/15/16 Omeprazole 40 mg PO DAILY 08/15/16 Potassium Chloride [Klor-Con 10 Meq Capsule ER] 10 meq PO DAILY 08/15/16 Ranitidine HCl [Zantac 150 mg Tablet] 150 mg PO BID 08/15/16 Gabapentin [Neurontin] 600 mg PO Q8 06/23/18 Torsemide [Demadex 20 mg Tablet] 20 mg PO DAILY 06/23/18 Aspirin/Caffeine [Bc Arthritis Powder Packet] 2 packet PO DAILY PRN 06/24/18 Labs- Entire Visit 06/23/18 06/23/18 06/23/18 19:10 19:10 19:10 WBC 6.7 RBC 5.34 Hgb 16.2 Hct 45.9 MCV 86 MCH 30.3 MCHC 35.3 RDW 13.1 Plt Count 124 L Seg Neutrophils % 40.2 L Lymphocytes % 40.6 Monocytes % 8.1 Eosinophils % 10.2 H Basophils % 0.9 Absolute Neutrophils 2.7 Absolute Lymphocytes 2.7 Absolute Monocytes 0.5 Absolute Eosinophils 0.7 H Absolute Basophils 0.1 ESR Sodium 142.4 Potassium 3.9 Chloride 104 Carbon Dioxide 26 Anion Gap 12 BUN 16 Creatinine 0.83 Est GFR ( Amer) > 60 Est GFR (Non-Af Amer) > 60 Glucose 147 H POC Glucose Calcium 9.7 Total Bilirubin 0.6 Direct Bilirubin 0.3 Neonat Total Bilirubin Not Reportable Neonat Direct Bilirubin Not Reportable Neonat Indirect Bili Not Reportable AST 36 ALT 44 Alkaline Phosphatase 94 Creatine Kinase 181 H CK-MB (CK-2) 1.41 Troponin I < 0.012 NT-Pro-B Natriuret Pep Total Protein 7.6 Albumin 4.3 TSH Free T4 Free T3 pg/mL 06/23/18 06/23/18 06/23/18 19:10 19:10 19:10 WBC RBC Hgb Hct MCV MCH MCHC RDW Plt Count Seg Neutrophils % Lymphocytes % Monocytes % Eosinophils % Basophils % Absolute Neutrophils Absolute Lymphocytes Absolute Monocytes Absolute Eosinophils Absolute Basophils ESR 14 Sodium Potassium Chloride Carbon Dioxide Anion Gap BUN Creatinine Est GFR ( Amer) Est GFR (Non-Af Amer) Glucose POC Glucose Calcium Total Bilirubin Direct Bilirubin Neonat Total Bilirubin Neonat Direct Bilirubin Neonat Indirect Bili AST ALT Alkaline Phosphatase Creatine Kinase CK-MB (CK-2) Troponin I NT-Pro-B Natriuret Pep 247 Total Protein Albumin TSH 3.61 Free T4 1.11 Free T3 pg/mL 4.28 06/24/18 06/24/18 06/24/18 01:17 01:17 07:46 WBC RBC Hgb Hct MCV MCH MCHC RDW Plt Count Seg Neutrophils % Lymphocytes % Monocytes % Eosinophils % Basophils % Absolute Neutrophils Absolute Lymphocytes Absolute Monocytes Absolute Eosinophils Absolute Basophils ESR Sodium Potassium Chloride Carbon Dioxide Anion Gap BUN Creatinine Est GFR ( Amer) Est GFR (Non-Af Amer) Glucose POC Glucose Calcium Total Bilirubin Direct Bilirubin Neonat Total Bilirubin Neonat Direct Bilirubin Neonat Indirect Bili AST ALT Alkaline Phosphatase Creatine Kinase 147 119 CK-MB (CK-2) 1.02 Troponin I < 0.012 NT-Pro-B Natriuret Pep Total Protein Albumin TSH Free T4 Free T3 pg/mL 06/24/18 06/24/18 06/24/18 07:46 07:46 07:46 WBC 5.7 RBC 4.93 Hgb 14.9 Hct 42.3 MCV 86 MCH 30.3 MCHC 35.3 RDW 13.1 Plt Count 101 L Seg Neutrophils % 40.3 L Lymphocytes % 39.6 Monocytes % 8.2 Eosinophils % 10.9 H Basophils % 1.0 Absolute Neutrophils 2.3 Absolute Lymphocytes 2.3 Absolute Monocytes 0.5 Absolute Eosinophils 0.6 Absolute Basophils 0.1 ESR Sodium 143.0 Potassium 4.0 Chloride 104 Carbon Dioxide 30 Anion Gap 9 BUN 19 Creatinine 0.83 Est GFR ( Amer) > 60 Est GFR (Non-Af Amer) > 60 Glucose 128 H POC Glucose Calcium 9.2 Total Bilirubin 0.6 Direct Bilirubin 0.4 Neonat Total Bilirubin Not Reportable Neonat Direct Bilirubin Not Reportable Neonat Indirect Bili Not Reportable AST 28 ALT 46 Alkaline Phosphatase 79 Creatine Kinase CK-MB (CK-2) 1.05 Troponin I < 0.012 NT-Pro-B Natriuret Pep Total Protein 6.8 Albumin 3.8 TSH Free T4 Free T3 pg/mL 06/24/18 06/24/18 06/24/18 08:04 12:39 13:15 WBC RBC Hgb Hct MCV MCH MCHC RDW Plt Count Seg Neutrophils % Lymphocytes % Monocytes % Eosinophils % Basophils % Absolute Neutrophils Absolute Lymphocytes Absolute Monocytes Absolute Eosinophils Absolute Basophils ESR Sodium Potassium Chloride Carbon Dioxide Anion Gap BUN Creatinine Est GFR ( Amer) Est GFR (Non-Af Amer) Glucose POC Glucose 126 H 112 H Calcium Total Bilirubin Direct Bilirubin Neonat Total Bilirubin Neonat Direct Bilirubin Neonat Indirect Bili AST ALT Alkaline Phosphatase Creatine Kinase 123 CK-MB (CK-2) Troponin I NT-Pro-B Natriuret Pep Total Protein Albumin TSH Free T4 Free T3 pg/mL 06/24/18 13:15 WBC RBC Hgb Hct MCV MCH MCHC RDW Plt Count Seg Neutrophils % Lymphocytes % Monocytes % Eosinophils % Basophils % Absolute Neutrophils Absolute Lymphocytes Absolute Monocytes Absolute Eosinophils Absolute Basophils ESR Sodium Potassium Chloride Carbon Dioxide Anion Gap BUN Creatinine Est GFR ( Amer) Est GFR (Non-Af Amer) Glucose POC Glucose Calcium Total Bilirubin Direct Bilirubin Neonat Total Bilirubin Neonat Direct Bilirubin Neonat Indirect Bili AST ALT Alkaline Phosphatase Creatine Kinase CK-MB (CK-2) 1.09 Troponin I < 0.012 NT-Pro-B Natriuret Pep Total Protein Albumin TSH Free T4 Free T3 pg/mL Chest/Abdomen CTA 06/23/18 00:00 IMPRESSION: No PE. No aneurysm or dissection. Subsegmental atelectasis right lung base. Elevation right hemidiaphragm. TECHNICAL DOCUMENTATION: Quality ID # 436: Final reports with documentation of one or more dose reduction techniques (e.g., Automated exposure control, adjustment of the mA and/or kV according to patient size, use of iterative reconstruction technique) copyright 2011 [employer]- All Rights Reserved Chest X-Ray 06/23/18 18:52 IMPRESSION: NO ACUTE FINDINGS. Brain MRI with MRA 06/24/18 08:00 IMPRESSION: NORMAL MRA OF THE [place]. Head MRI 06/24/18 08:00 IMPRESSION: NORMAL MRI OF THE BRAIN WITHOUT INTRAVENOUS GADOLINIUM CONTRAST. EVIDENCE OF ACUTE STROKE: NO. EKG: Sinus bradycardia. First-degree AV block. Incomplete right bundle branch block pattern and left anterior fascicle block. IMPRESSION/RECOMMENDATION: 1. Bradycardia. Note that the patient is not on any AV or SA eligio blocking agents. His EKG just does show first-degree AV block, incomplete right bundle branch block, pattern, and left anterior fascicular block. Whether this is progressing to intermittent trifascicular block needs to be ascertained. Although gabapentin can cause bradycardia, the patient does have evidence of AV eligio disease, and bundle branch disease. Hence if the patient can exercise on a treadmill then would recommend exercise treadmill Cardiolite to see if the patient has chronotropic incompetence and or underlying coronary artery disease, in view the patient's chest pain. Also it is not clear whether the patient's dizziness, and he reports one episode of syncope in the past is related to his vertigo or whether this is secondary to his heart rhythm. If this proves that the patient does have chronotropic incompetence, or evidence of intermittent trifascicular block, then would recommend a DDDR pacemaker, dual-chamber. Hence would recommend a 30-day event monitor also would recommend, if possible, to stop gabapentin, to see if the heart rate improves with that. The patient's thyroid function tests are within normal limits. 2. CHEST PAIN: Atypical no evidence of AK this admission. But the patient does have multiple CAD risk factors. Hence would recommend a exercise treadmill Cardiolite, [if the patient can exercise] versus IV Lexiscan Cardiolite. This can be done as an outpatient. Note no evidence of AK this admission by cardiac biomarkers, and no acute ischemic changes on EKG. 3. Past history of one episode of syncope: Definitely needs a 30-day event monitor. 4. Hypertension: Seems to be well controlled 5. Diabetes mellitus with neuropathy. Patient states in the past his blood sugar was high, but then with medication he dropped to 90-1 20 when he would feel very bad and fatigued. Hence he had stopped his antidiabetic medication. Note his blood pressure blood sugars are in the 300 range. Need to reach a safe medium between the hyperglycemia and hypoglycemia, with medication. 6. The patient has symptoms suggestive of obstructive sleep apnea. Would recommend outpatient sleep study. Will get nocturnal proximal pulse oximetry to see if the patient does Dopplers oxygen saturations at night. 7. Chronic obstructive pulmonary disease: Seems to be stable 8. History of vertigo: The patient does have some problems with this left ear hearing and also has ear pains. He states he has seen ENT in the past. He is not able to say exactly what their recommendations were. 9. temporomandibular joint disease: Continue exercises, and pain medication as needed. 10. Hiatal hernia and GERD. Continue proton pump inhibitors. 11. Arthritis and chronic back pain. At present the patient is stable enough to be discharged. Recommend outpatient 30-day event monitor, echocardiogram to assess LV function and murmur, and for chest pains to see the patient has mitral valve prolapse. Also would recommend a if possible exercise treadmill Cardiolite stress test or IV Lexiscan Cardiolite stress test. These tests can be done as an outpatient. Medications reviewed. Management plan discussed with Dr. Mcdowell covering Dr. Esteban. Will discuss with Dr. Esteban when he is back tomorrow. 60 minutes spent on this patient with more than 50% of the time spent in direct patient care. Medical decision making is of high complexity in view of the complexity of the patient's symptomatology/etiology. I have given the patient my cell phone number, and he will follow-up with me in the office.
--- NOTE | 2018-06-24 22:38 | EKG REPORT ---
SEVERITY:- ABNORMAL ECG - SINUS BRADYCARDIA FIRST DEGREE AV BLOCK NONSPECIFIC INTRAVENTRICULAR CONDUCTION DELAY : Confirmed by: Jaspal Garcia 24-Jun-2018 22:37:20
[2018-06-25] MEDS: INSULIN LISPRO 100 UNIT/ML 3 ML VIAL SUBCUT SCH ×5 (04:25→22:05)
[2018-06-25] MEDS: GABAPENTIN 300 MG CAPSULE PO SCH ×3 (05:35→22:04)
[2018-06-25] MEDS: PANTOPRAZOLE SODIUM 40 MG TABLET.DR PO SCH ×2 (05:35→18:01)
[2018-06-25 08:24] LABS: ABSOLUTE BASOPHILS # (AUTO) 0.1 10^3/uL (0.0-0.2); ABSOLUTE EOSINOPHILS # (AUTO) 0.8 10^3/uL (0.0-0.6); ABSOLUTE LYMPHOCYTES (AUTO) 2.5 10^3/uL (0.5-4.7); ABSOLUTE MONOCYTES (AUTO) 0.6 10^3/uL (0.1-1.4); ABSOLUTE NEUT (AUTO) 2.6 10^3/uL (1.7-8.2); EOSINOPHILS % (AUTO) 11.7 % (0-6); HEMATOCRIT 48.9 % (37.9-51.0); LYMPHOCYTES % (AUTO) 38.4 % (13-45); MEAN CORPUSCULAR HEMOGLOBIN 30.1 pg (27.0-33.4); MEAN CORPUSCULAR HGB CONC 35.1 g/dL (32.0-36.0); MEAN CORPUSCULAR VOLUME 86 fl (80-97); MONOCYTES % (AUTO) 8.5 % (3-13); PLATELET COUNT 118 10^3/uL (150-450); RED BLOOD COUNT 5.71 10^6/uL (4.35-5.55); RED CELL DISTRIBUTION WIDTH 13.2 % (11.5-14.0); SEGMENTED NEUTROPHILS % (AUTO) 40.4 % (42-78); TOTAL CELLS COUNTED % (AUTO) 100 %; WHITE BLOOD COUNT 6.5 10^3/uL (4.0-10.5)
[2018-06-25 08:28] LABS: HEMOGLOBIN 17.1 g/dL (13.5-17.0)
[2018-06-25] MEDS: OXYCODONE-ACETAMINOPHEN 5-325 MG TABLET PO PRN (10:07)
[2018-06-25] MEDS: FAMOTIDINE 20 MG TABLET PO SCH ×2 (10:07→18:01)
[2018-06-25] MEDS: VALSARTAN 160 MG TABLET PO SCH (10:07)
[2018-06-25] MEDS: TORSEMIDE 20 MG TABLET PO SCH (10:07)
[2018-06-25] MEDS: POTASSIUM CHLORIDE 10 MEQ CAPSULE.ER PO SCH (10:07)
[2018-06-25] MEDS: DOCUSATE SODIUM 100 MG CAPSULE PO SCH ×2 (10:08→18:01)
[2018-06-25] MEDS: ENOXAPARIN SODIUM INJ 40 MG/0.4 ML DISP.SYRIN SUBCUT SCH (10:08)
[2018-06-25] MEDS: HYDROCHLOROTHIAZIDE 25 MG TABLET PO SCH (10:08)
[2018-06-25] MEDS: AMLODIPINE BESYLATE 10 MG TABLET PO SCH (10:08)
[2018-06-25] MEDS: AMLODIPINE BESYLATE 5 MG TABLET PO SCH ×2 (11:35→22:05)
--- NOTE | 2018-06-25 19:44 | PDOC PROGRESS REPORT ---
Subjective Progress Note for:: 06/25/18 Subjective:: Was seen by the bedside, he has severe epigastric pain, and was admitted over the weekend Reason For Visit: CHEST PAIN Physical Exam Vital Signs: Temp Pulse Resp BP Pulse Ox 97.9 F 57 L 16 109/61 97 06/25/18 12:17 06/25/18 15:59 06/25/18 15:59 06/25/18 12:17 06/25/18 15:59 Intake & Output 06/24/18 06/25/18 06/26/18 06:59 06:59 06:59 Intake Total 912 948 Output Total 3050 1500 Balance -2138 -552 Weight 85.7 kg 86 kg General appearance: PRESENT: no acute distress Eye exam: PRESENT: PERRLA Respiratory exam: PRESENT: clear to auscultation amando Cardiovascular exam: PRESENT: +S1, +S2 Murmur grade: 3 GI/Abdominal exam: PRESENT: soft Neurological exam: PRESENT: alert Results Laboratory Results: 06/25/18 07:44 06/24/18 07:46 06/25/18 06/25/18 05:56 07:44 WBC Cancelled 6.5 RBC Cancelled 5.71 H Hgb Cancelled 17.1 H D Hct Cancelled 48.9 MCV Cancelled 86 MCH Cancelled 30.1 MCHC Cancelled 35.1 RDW Cancelled 13.2 Plt Count Cancelled 118 L Seg Neutrophils % Cancelled 40.4 L Lymphocytes % Cancelled 38.4 Monocytes % Cancelled 8.5 Eosinophils % Cancelled 11.7 H Basophils % Cancelled 1.0 Absolute Neutrophils Cancelled 2.6 Absolute Lymphocytes Cancelled 2.5 Absolute Monocytes Cancelled 0.6 Absolute Eosinophils Cancelled 0.8 H Absolute Basophils Cancelled 0.1 06/23/18 06/23/18 06/23/18 19:10 19:10 19:10 Creatine Kinase 181 H CK-MB (CK-2) 1.41 Troponin I < 0.012 NT-Pro-B Natriuret Pep 247 06/24/18 06/24/18 06/24/18 01:17 01:17 07:46 Creatine Kinase 147 119 CK-MB (CK-2) 1.02 Troponin I < 0.012 NT-Pro-B Natriuret Pep 06/24/18 06/24/18 06/24/18 07:46 13:15 13:15 Creatine Kinase 123 CK-MB (CK-2) 1.05 1.09 Troponin I < 0.012 < 0.012 NT-Pro-B Natriuret Pep Impressions: Chest/Abdomen CTA 06/23/18 00:00 IMPRESSION: No PE. No aneurysm or dissection. Subsegmental atelectasis right lung base. Elevation right hemidiaphragm. TECHNICAL DOCUMENTATION: Quality ID # 436: Final reports with documentation of one or more dose reduction techniques (e.g., Automated exposure control, adjustment of the mA and/or kV according to patient size, use of iterative reconstruction technique) copyright [address] [employer]- All Rights Reserved Chest X-Ray 06/23/18 18:52 IMPRESSION: NO ACUTE FINDINGS. Brain MRI with MRA 06/24/18 08:00 IMPRESSION: NORMAL MRA OF THE [place] OF [place]. Head MRI 06/24/18 08:00 IMPRESSION: NORMAL MRI OF THE BRAIN WITHOUT INTRAVENOUS GADOLINIUM CONTRAST. EVIDENCE OF ACUTE STROKE: NO. Assessment & Plan - Diagnosis (1) Epigastric pain Is this a current diagnosis for this admission?: Yes Plan: There is tenderness on palpation of the abdomen, consultation will be requested from surgery for upper endoscopy
[2018-06-26] MEDS: GABAPENTIN 300 MG CAPSULE PO SCH ×2 (05:26→14:59)
[2018-06-26] MEDS: PANTOPRAZOLE SODIUM 40 MG TABLET.DR PO SCH ×2 (05:26→18:15)
[2018-06-26 07:04] LABS: ABSOLUTE BASOPHILS # (AUTO) 0.1 10^3/uL (0.0-0.2); ABSOLUTE EOSINOPHILS # (AUTO) 0.8 10^3/uL (0.0-0.6); ABSOLUTE NEUT (AUTO) 4.6 10^3/uL (1.7-8.2); EOSINOPHILS % (AUTO) 7.7 % (0-6); HEMOGLOBIN 18.7 g/dL (13.5-17.0); LYMPHOCYTES % (AUTO) 38.5 % (13-45); MEAN CORPUSCULAR HEMOGLOBIN 30.3 pg (27.0-33.4); MEAN CORPUSCULAR HGB CONC 35.2 g/dL (32.0-36.0); MEAN CORPUSCULAR VOLUME 86 fl (80-97); MONOCYTES % (AUTO) 9.3 % (3-13); PLATELET COUNT 153 10^3/uL (150-450); RED BLOOD COUNT 6.15 10^6/uL (4.35-5.55); RED CELL DISTRIBUTION WIDTH 13.3 % (11.5-14.0); SEGMENTED NEUTROPHILS % (AUTO) 43.5 % (42-78); TOTAL CELLS COUNTED % (AUTO) 100 %; WHITE BLOOD COUNT 10.5 10^3/uL (4.0-10.5)
[2018-06-26] MEDS: INSULIN LISPRO 100 UNIT/ML 3 ML VIAL SUBCUT SCH ×3 (08:11→18:16)
[2018-06-26] MEDS: VALSARTAN 160 MG TABLET PO SCH (09:34)
[2018-06-26] MEDS: POTASSIUM CHLORIDE 10 MEQ CAPSULE.ER PO SCH (09:35)
[2018-06-26] MEDS: TORSEMIDE 20 MG TABLET PO SCH (09:35)
[2018-06-26] MEDS: DOCUSATE SODIUM 100 MG CAPSULE PO SCH ×2 (09:35→18:15)
[2018-06-26] MEDS: ENOXAPARIN SODIUM INJ 40 MG/0.4 ML DISP.SYRIN SUBCUT SCH (09:35)
[2018-06-26] MEDS: HYDROCHLOROTHIAZIDE 25 MG TABLET PO SCH (09:35)
[2018-06-26] MEDS: FAMOTIDINE 20 MG TABLET PO SCH ×2 (09:36→18:15)
[2018-06-26] MEDS: AMLODIPINE BESYLATE 5 MG TABLET PO SCH (09:36)
[2018-06-26] MEDS ORDERED: ONDANSETRON HCL INJ/PF 4 MG/2 ML SDV ONE (11:31)
[2018-06-26] MEDS ORDERED: DIPHENHYDRAMINE HCL 50 MG/ML VIAL ONE (11:31)
[2018-06-26] MEDS ORDERED: EPINEPHRINE INJ 1 MG/10 ML DISP.SYRIN ONE (11:32)
[2018-06-26] MEDS ORDERED: FLUMAZENIL INJ 0.5 MG/5 ML VIAL ONE (11:32)
[2018-06-26] MEDS ORDERED: FENTANYL CITRATE INJ/PF 100 MCG/2 ML AMPUL ONE (11:32)
[2018-06-26] MEDS ORDERED: NALOXONE HCL INJ/PF 0.4 MG/1 ML SDV ONE (11:32)
[2018-06-26] MEDS ORDERED: GLUCAGON,HUMAN RECOMB 1 MG INJ ONE (11:32)
[2018-06-26] MEDS: MIDAZOLAM 2 MG/2 ML INJ ONE ×2 (12:06→12:11)
--- NOTE | 2018-06-26 13:09 | OPERATIVE REPORT E ---
Operative Report NAME: CARLOS STALLINGS : 1955 AGE: 63Y DATE OF SURGERY: 06/26/2018 ROOM: 529 PREOPERATIVE DIAGNOSIS: CHEST PAIN. SURGEON: MAINOR KEEN M.D. INDICATIONS FOR PROCEDURE: This is a 63-year-old male patient of Dr. Esteban with a history of hypertension, type-2 diabetes, general neuralgia who came to the emergency department over the last couple of days complaining of left sided chest pain radiating into his neck. The patient was feeling tired and fatigued. According to the patient, he saw Dr. Esteban a couple of weeks back for which he tried to send the patient to Cardiology but he never followed up with Cardiology. He was admitted last year for a similar type of chest pain, underwent a Cardiolite study, Cardiolite stress test which was all normal. It was felt that this chest pain may be secondary to reflux disease and/or an ulcer and therefore he was scheduled for this procedure. PROCEDURE: The patient is brought to the endoscopy suite, awake, and alert in stable condition and given IV sedation using Versed and Fentanyl. He was placed in the left lateral decubitus position and an Olympus gastroscope was used for the procedure. After an appropriate timeout and site verification, the Olympus gastroscope was easily passed into the posterior pharynx and manipulated down past the upper esophageal sphincters into the proximal esophagus. We passed the scope through the gastroesophageal junction into the stomach and then identified the pylorus and passed it into the duodenum. Upon visualization of the second portion of the duodenum, that mucosa appeared to be normal. As I withdrew the scope, I noted just on the antral side of the pylorus there was a small antral polyp, probably 2 to 3 mm in diameter which was biopsied. We also noted some mild duodenitis as we exited the duodenum. The antrum appeared to be normal without any evidence of gastritis. I retroflexed the scope and saw a moderate sized hiatal hernia. As we withdrew the scope we did see some distal esophagitis but no evidence of any bleeding, stricture, or scarring. The scope was withdrawn. IMPRESSION: MILD ESOPHAGITIS, MILD DUODENITIS, ANTRAL POLYP, AND MODERATE SIZED HIATAL HERNIA. The patient was then transferred to recovery in stable condition, no complications. DICTATING PHYSICIAN: MAINOR KEEN M.D. [id number] PHY#: [id number] ID: [id number] JOB#: [id number] ACCT: [id number] cc:MAINOR KEEN M.D. >
[2018-06-26 16:31] VITALS: BP 114/61
[2018-06-26] MEDS: OXYCODONE-ACETAMINOPHEN 5-325 MG TABLET PO PRN (17:59)
--- NOTE | 2018-06-26 21:28 | PDOC DISCHARGE SUMMARY ---
General - Admit/Disc Date/PCP Admission Date/Primary Care Provider: 06/23/18 20:54 VANESSA CHAMBERS MD Discharge Date: 06/26/18 - Discharge Diagnosis (1) Chest pain Is this a current diagnosis for this admission?: Yes (2) Epigastric pain Is this a current diagnosis for this admission?: Yes (3) Sinus bradycardia Is this a current diagnosis for this admission?: Yes - Additional Information Home Medications: Amlodipine/Valsartan/Hcthiazid [Bsqvo-Plyzp-Dgxa 10-320-25 mg] 1 tab PO DAILY 08/15/16 Omeprazole 40 mg PO DAILY 08/15/16 Potassium Chloride [Klor-Con 10 Meq Capsule ER] 10 meq PO DAILY 08/15/16 Ranitidine HCl [Zantac 150 mg Tablet] 150 mg PO BID 08/15/16 Gabapentin [Neurontin] 600 mg PO Q8 06/23/18 Torsemide [Demadex 20 mg Tablet] 20 mg PO DAILY 06/23/18 Aspirin/Caffeine [Bc Arthritis Powder Packet] 2 packet PO DAILY PRN 06/24/18 History of Present Illness History of Present Illness: CARLOS STALLINGS is a 63 year old male, He came to the emergency room for evaluation of chest pain Hospital Course Hospital Course: He was admitted for evaluation and management of chest pain, epigastric pain he underwent extensive evaluation including CTA chest, this was negative for pulmo nary embolism. He was seen by the surgery he underwent EGD, it demonstrated nonspecific gastritis, duodenitis and a polyp in the stomach Physical Exam Vital Signs: Temp Pulse Resp BP Pulse Ox 98.3 F 55 L 16 114/61 97 06/26/18 16:20 06/26/18 16:20 06/26/18 16:20 06/26/18 16:20 06/26/18 16:20 Intake & Output 06/25/18 06/26/18 06/27/18 06:59 06:59 06:59 Intake Total 912 948 100 Output Total 3050 1500 Balance -4320 -462 100 Weight 86 kg General appearance: PRESENT: no acute distress Eye exam: PRESENT: PERRLA Respiratory exam: PRESENT: clear to auscultation amando Cardiovascular exam: PRESENT: +S1, +S2 Murmur grade: 3 GI/Abdominal exam: PRESENT: soft Neurological exam: PRESENT: alert Results Laboratory Results: 06/26/18 05:05 06/24/18 07:46 06/26/18 05:05 WBC 10.5 RBC 6.15 H Hgb 18.7 H Hct 53.0 H MCV 86 MCH 30.3 MCHC 35.2 RDW 13.3 Plt Count 153 Seg Neutrophils % 43.5 Lymphocytes % 38.5 Monocytes % 9.3 Eosinophils % 7.7 H Basophils % 1.0 Absolute Neutrophils 4.6 Absolute Lymphocytes 4.0 Absolute Monocytes 1.0 Absolute Eosinophils 0.8 H Absolute Basophils 0.1 06/23/18 06/23/18 06/23/18 19:10 19:10 19:10 Creatine Kinase 181 H CK-MB (CK-2) 1.41 Troponin I < 0.012 NT-Pro-B Natriuret Pep 247 06/24/18 06/24/18 06/24/18 01:17 01:17 07:46 Creatine Kinase 147 119 CK-MB (CK-2) 1.02 Troponin I < 0.012 NT-Pro-B Natriuret Pep 06/24/18 06/24/18 06/24/18 07:46 13:15 13:15 Creatine Kinase 123 CK-MB (CK-2) 1.05 1.09 Troponin I < 0.012 < 0.012 NT-Pro-B Natriuret Pep Impressions: Chest/Abdomen CTA 06/23/18 00:00 IMPRESSION: No PE. No aneurysm or dissection. Subsegmental atelectasis right lung base. Elevation right hemidiaphragm. TECHNICAL DOCUMENTATION: Quality ID # 436: Final reports with documentation of one or more dose reduction techniques (e.g., Automated exposure control, adjustment of the mA and/or kV according to patient size, use of iterative reconstruction technique) copyright 2011 [employer]- All Rights Reserved Chest X-Ray 06/23/18 18:52 IMPRESSION: NO ACUTE FINDINGS. Brain MRI with MRA 06/24/18 08:00 IMPRESSION: NORMAL MRA OF THE [place]. Head MRI 06/24/18 08:00 IMPRESSION: NORMAL MRI OF THE BRAIN WITHOUT INTRAVENOUS GADOLINIUM CONTRAST. EVIDENCE OF ACUTE STROKE: NO. Qualifiers - * PATIENT BEING DISCHARGED WITH ANY OF THE FOLLOWING DIAGNOSIS: No Acute Heart Failure Is this a Heart Failure Patient?: No
== END 2018-06-26 19:40 | disposition home or self-care (01) | DRG 313 ==
LOC: ER 18:25 → OBSVTOIN 20:54 → EH 20:54 → 5 23:01
PROVIDERS: ADMIT Internal Medicine; ATTEND Internal Medicine
PROC: 0DB78ZX Excision of Stomach, Pylorus, Via Natural or Artificial Opening Endoscopic, Diagnostic (ICD-10-PCS; principal; 2018-06-26 11:30)
DX: R07.89 Other chest pain (principal); R10.13 Epigastric pain; R00.1 Bradycardia, unspecified; K29.70 Gastritis, unspecified, without bleeding; K29.80 Duodenitis without bleeding; K31.7 Polyp of stomach and duodenum; I10 Essential (primary) hypertension; E11.9 Type 2 diabetes mellitus without complications; M26.609 Unspecified temporomandibular joint disorder, unspecified side; G47.30 Sleep apnea, unspecified; J44.9 Chronic obstructive pulmonary disease, unspecified; K21.9 Gastro-esophageal reflux disease without esophagitis; G89.29 Other chronic pain; M54.9 Dorsalgia, unspecified; I44.0 Atrioventricular block, first degree; I45.10 Unspecified right bundle-branch block; K44.9 Diaphragmatic hernia without obstruction or gangrene; E11.40 Type 2 diabetes mellitus with diabetic neuropathy, unspecified; G50.0 Trigeminal neuralgia; M15.3 Secondary multiple arthritis; G47.33 Obstructive sleep apnea (adult) (pediatric); Z79.899 Other long term (current) drug therapy; Z82.49 Family history of ischemic heart disease and other diseases of the circulatory system
CPT/HCPCS: 36415; 43239; 70544; 70551; 71045; 71275; 80053; 82550; 82553; 82962; 83880; 84439; 84443; 84481; 84484; 85025; 85652; 88305; 88342; 93005; 93010; 99285; J0171; J1200; J1610; J2250; J2270; J2310; J2405; J3010; J3490

== ENCOUNTER → 2018-07-03 | Outpatient (CLI) | payer MEDICARE ==
--- NOTE | 2018-07-03 15:08 | RADIOLOGY REPORT (SQ) ---
EXAM DESCRIPTION: CT FACIAL AREA WITHOUT COMPLETED DATE/TIME: 07/03/2018 2:29 pm REASON FOR STUDY: M26.622 ARTHRALGIA OF LEFT TEMPOROMANDIBULAR JOINT M26.622 ARTHRALGIA OF LEFT TEM POROMANDIBULAR JOINT COMPARISON: MRI brain 06/24/2018 TECHNIQUE: Noncontrasted images through the facial bones and orbits windowed for bone and soft tissu e. Additional coronal and sagittal reconstructed images reviewed. All images stored on PACS. All CT scanners at this facility use dose modulation, iterative reconstruction, and/or weight based d osing when appropriate to reduce radiation dose to as low as reasonably achievable (ALARA). [facility]: Dose Right [facility]: CareDose [facility]: Dose Right [facility]: Teradose 4D [facility]: [employer] RADIATION DOSE: 45.5 mGy. LIMITATIONS: None. FINDINGS: FACIAL BONES: No fracture or bone lesion. ORBITS: Intact. No fracture. Symmetric intact globes and retroorbital soft tissues. PARANASAL SINUSES: Mucous membrane thickening and fluid in the left frontal sinus and fronto ethmoid junction. Sinuses are otherwise clear. No nasal polyps. Maxillary sinus outlets are patent. SOFT TISSUES: No mass or edema. INFERIOR BRAIN: Limited view. No acute findings. OTHER: Bilateral temporomandibular joint space is maintained. No bulky bony osteophytes. Menisci no t well seen, temporomandibular joint meniscal irregularity could be present. IMPRESSION: NO ACUTE FINDINGS. TECHNICAL DOCUMENTATION: JOB ID: [id number] Quality ID # [id number]: Final reports with documentation of one or more dose reduction techniques (e.g., Au tomated exposure control, adjustment of the mA and/or kV according to patient size, use of iterative reconstruction technique) 2010 [employer]- All Rights Reserved Reading location - IP/workstation name: [email or web address]
== END ==
LOC: RAD 13:24
PROVIDERS: ATTEND Internal Medicine
DX: M26.622 Arthralgia of left temporomandibular joint (principal)
CPT/HCPCS: 70486

== ENCOUNTER → 2019-08-28 | Outpatient (CLI) | payer MEDICARE ==
--- NOTE | 2019-08-28 14:28 | RADIOLOGY REPORT (SQ) ---
EXAM DESCRIPTION: CT LT UPPER EXTREMITY WITHOUT IMAGES COMPLETED DATE/TIME: 08/28/2019 1:19 pm REASON FOR STUDY: M25.512 PAIN IN LEFT SHOULDER M25.512 PAIN IN LEFT SHOULDER COMPARISON: None. TECHNIQUE: Axial imaging performed through the leftshoulder with reformatted oblique coronal and obl ique sagittal imaging windowed for bone and soft tissues. Additional 3D shaded surface display imaging of the left shoulder was generated on an independent wor kstation All CT scanners at this facility use dose modulation, iterative reconstruction, and/or weight based d osing when appropriate to reduce radiation dose to as low as reasonably achievable (ALARA). [facility]: Dose Right [facility]: CareDose [facility]: Dose Right [facility]: Teradose 4D [facility]: [employer] RADIATION DOSE: CT Rad equipment meets quality standard of care and radiation dose reduction techniq ues were employed. CTDIvol: 22.9 mGy. DLP: 593 mGy-cm. mGy. LIMITATIONS: None. FINDINGS: SOFT TISSUES: No masses or adenopathy BONY ARCHITECTURE: No fracture or malalignment. No lytic or blastic lesions. GLENOHUMERAL JOINT: Very mild joint space narrowing without bulky bony spurring. Normal alignment. ACROMION AND AC JOINT: Type 2 acromion with mild acromioclavicular joint hypertrophy, narrowing the s ub acromial space on coronal image 17 and sagittal image 48 through 52 ROTATOR CUFF: Grossly normal thickness, no muscle atrophy GLENOID, LABRUM AND BICEPS: Not well seen OTHER: There is high-grade left C6-7 neural foraminal narrowing best shown on axial image 20 and sagi ttal reconstruction image 13. Left-sided pacemaker. Cardiomegaly. Visualized left lung clear. IMPRESSION: Acromioclavicular joint hypertrophy with mild narrowing of the subacromial space Left C6-7 foraminal narrowing at the upper edge of the field of view TECHNICAL DOCUMENTATION: JOB ID: [id number] Quality ID # [id number]: Final reports with documentation of one or more dose reduction techniques (e.g., Au tomated exposure control, adjustment of the mA and/or kV according to patient size, use of iterative reconstruction technique) 2010 [employer]- All Rights Reserved Reading location - IP/workstation name: [email or web address]
== END ==
LOC: RAD 12:26
PROVIDERS: ATTEND Internal Medicine
DX: M12.812 Other specific arthropathies, not elsewhere classified, left shoulder (principal); M25.512 Pain in left shoulder

== ENCOUNTER → 2020-01-03 | Outpatient (CLI) | payer MEDICARE ==
--- NOTE | 2020-01-03 11:22 | RADIOLOGY REPORT (SQ) ---
EXAM DESCRIPTION: CTA CHEST IMAGES COMPLETED DATE/TIME: 01/03/2020 10:37 am REASON FOR STUDY: R06.02 SHORTNESS OF BREATH R06.02 SHORTNESS OF BREATH COMPARISON: 06/23/2018 TECHNIQUE: CT scan of the chest performed using helical scanning technique with dynamic intravenous contrast injection. Images reviewed with lung, soft tissue and bone windows. Reconstructed coronal and sagittal MPR images reviewed. Additional 3 dimensional post-processing performed to develop Maximal Intensity Projection images (UT P). All images stored on PACS. All CT scanners at this facility use dose modulation, iterative reconstruction, and/or weight based d osing when appropriate to reduce radiation dose to as low as reasonably achievable (ALARA). [facility]: Dose Right [facility]: CareDose [facility]: Dose Right [facility]: Teradose 4D [facility]: [employer] CONTRAST TYPE AND DOSE: contrast/concentration: Isovue 350.00 mmol/ml; Total Contrast Delivered: 57. 0 ml; Total Saline Delivered: 80.0 ml Contrast bolus optimized for the pulmonary arteries. Not diagnostic for the aorta. RENAL FUNCTION: Creatinine 1.3 RADIATION DOSE: CT Rad equipment meets quality standard of care and radiation dose reduction techniq ues were employed. CTDIvol: 15.0 mGy. DLP: 626 mGy-cm. . LIMITATIONS: None. FINDINGS: LUNGS AND PLEURA: No masses, infiltrates, or pneumothorax. No pleural effusions or pleura l calcifications. There is bandlike atelectasis in both lung bases. AORTA AND GREAT VESSELS: No aneurysm. Contrast bolus not optimized for the aorta. HEART: No pericardial effusion. No significant coronary artery calcifications. PULMONARY ARTERIES: No emboli visualized in the main pulmonary arteries or the segmental branches. HILAR AND MEDIASTINAL STRUCTURES: No identified masses or abnormal nodes. HARDWARE: None in the chest. UPPER ABDOMEN: No significant findings. Limited exam. THYROID AND OTHER SOFT TISSUES: No masses. No adenopathy. BONES: No acute or significant finding. 3D MIPS: Confirm above findings. OTHER: No other significant finding. IMPRESSION: NORMAL CTA OF THE CHEST. NO PULMONARY EMBOLI. COMMENT: Quality ID # [id number]: Final reports with documentation of one or more dose reduction techniques (e.g., Automated exposure control, adjustment of the mA and/or kV according to patient size, use of iterative reconstruction technique) TECHNICAL DOCUMENTATION: JOB ID: [id number] [email or web address]- All Rights Reserved Reading location - IP/workstation name: [email or web address]
== END ==
LOC: RAD 10:10
PROVIDERS: ATTEND Internal Medicine
DX: R06.02 Shortness of breath (principal)
CPT/HCPCS: 71275; 82565